=== PATIENT | male | born 1960 | race Caucasian/White ===

== ENCOUNTER 2019-02-10 13:33 | Emergency (ER) | payer OTHER ==
--- NOTE | 2019-02-10 14:12 | ER ---
Nurse's Notes [facility] Name: Missael Beaulieu Age: 58 yrs Sex: Male : 1960 Arrival Date: 02/10/2019 Time: 13:37 Bed 20 Private MD: Diagnosis: Balanoposthitis;Balanitis;Type 2 diabetes mellitus Presentation: 02/10 13:50 Presenting complaint: Patient states: "I am from out of town and I went to go see a aa5 doctor here because my blood sugar was high and they gave me glipizide on January 25 but on Tuesday I started with this rash on my scrotum". 13:50 Acuity: VANITA 5 aa5 13:50 Transition of care: patient was not received from another setting of care. Onset of aa5 symptoms was January 2019. Risk Assessment: Do you want to hurt yourself or someone else? Patient reports no desire to harm self or others. Initial Sepsis Screen: Does the patient meet any 2 criteria? No. Patient's initial sepsis screen is negative. Does the patient have a suspected source of infection? No. Patient's initial sepsis screen is negative. Care prior to arrival: None. 13:50 Method Of Arrival: Ambulatory aa5 Historical: - Allergies: 13:52 No Known Allergies; aa5 - Home Meds: 13:52 atorvastatin, gabapentin, glipizide, metformin, cyclobenzaprine, cartia, steglatro, aa5 lisinopril. [Active]; - PMHx: 13:52 Diabetes - NIDDM; Hypertension; aa5 - PSHx: 13:52 Pacemaker; aa5 - Immunization history:: Adult Immunizations up to date. - Social history:: Smoking status: Patient/guardian denies using tobacco. - Ebola Screening: : No symptoms or risks identified at this time. - Family history:: not pertinent. Screenin:20 Abuse screen: Denies threats or abuse. Nutritional screening: No deficits noted. tw2 Tuberculosis screening: No symptoms or risk factors identified. Fall Risk None identified. Assessment: 14:20 General: Appears in no apparent distress. Behavior is calm, cooperative, appropriate tw2 for age. Pain: Denies pain. Neuro: Level of Consciousness is awake, alert, obeys commands. Cardiovascular: Patient's skin is warm and dry. Respiratory: Airway is patent Respiratory effort is even, unlabored, Respiratory pattern is regular, symmetrical. GI: No signs and/or symptoms were reported involving the gastrointestinal system. Derm: Reports itching and redness to scrotum. Vital Signs: 13:52 BP 126 / 90; Pulse 77; Resp 18 S; Temp 98.6(O); Pulse Ox 97% on R/A; Weight 124.74 kg aa5 (R); Height 6 ft. 1 in. (185.42 cm) (R); 13:52 Body Mass Index 36.28 (124.74 kg, 185.42 cm) aa5 ED Course: 13:37 Patient arrived in ED. rg4 13:49 Carlos Eduardo Clemons MD is Attending Physician. [facility] 13:50 Arm band placed on. aa5 13:50 Bed in low position. Call light in reach. tw2 13:53 Triage completed. aa5 14:20 Estelita Briggs, RN is Primary Nurse. tw2 14:21 No provider procedures requiring assistance completed. Patient did not have IV access tw2 during this emergency room visit. Administered Medications: No medications were administered Outcome: 14:11 Discharge ordered by . [facility] 14:21 Discharged to home ambulatory. tw2 14:21 Condition: stable 14:21 Discharge instructions given to patient, Instructed on discharge instructions, follow up and referral plans. medication usage, Demonstrated understanding of instructions, follow-up care, medications, Prescriptions given X 2. 14:22 Patient left the ED. tw2 Signatures: Carlos Eduardo Clemons MD MD cha Calderon, Audri RN RN aa5 Estelita Briggs RN RN tw2 Joana Salazar rg4
--- NOTE | 2019-02-10 14:12 | EDPHYS ---
Physician Documentation [facility] Name: Missael Beaulieu Age: 58 yrs Sex: Male : 1960 Arrival Date: 02/10/2019 Time: 13:37 Bed 20 Private MD: ED Physician Carlos Eduardo Clemons HPI: 02/10 14:05 This 58 yrs old Male presents to ER via Ambulatory with complaints of Rash. michaela 14:05 The patient's rash thought to be caused by Dermatitis. The rash is located on the body michaela diffusely. The rash can be described as erythematous, raised. Onset: The symptoms/episode began/occurred 3 day(s) ago. Associated signs and symptoms: Pertinent positives: burning sensation, itching, Pertinent negatives: fever. Severity of symptoms: At their worst the symptoms were mild in the emergency department the symptoms are unchanged. Possible causes: yeast. Historical: - Allergies: 13:52 No Known Allergies; aa5 - Home Meds: 13:52 atorvastatin, gabapentin, glipizide, metformin, cyclobenzaprine, cartia, steglatro, aa5 lisinopril. [Active]; - PMHx: 13:52 Diabetes - NIDDM; Hypertension; aa5 - PSHx: 13:52 Pacemaker; aa5 - Immunization history:: Adult Immunizations up to date. - Social history:: Smoking status: Patient/guardian denies using tobacco. - Ebola Screening: : No symptoms or risks identified at this time. - Family history:: not pertinent. ROS: 14:05 Constitutional: Negative for fever, chills, and weight loss, Eyes: Negative for injury, michaela pain, redness, and discharge, ENT: Negative for injury, pain, and discharge, Neck: Negative for injury, pain, and swelling, Cardiovascular: Negative for chest pain, palpitations, and edema, Respiratory: Negative for shortness of breath, cough, wheezing, and pleuritic chest pain, Abdomen/GI: Negative for abdominal pain, nausea, vomiting, diarrhea, and constipation, Back: Negative for injury and pain, MS/Extremity: Negative for injury and deformity, Skin: Negative for injury, rash, and discoloration, Neuro: Negative for headache, weakness, numbness, tingling, and seizure, Psych: Negative for depression, anxiety, suicide ideation, homicidal ideation, and hallucinations, Allergy/Immunology: Negative for hives, rash, and allergies, Endocrine: Negative for neck swelling, polydipsia, polyuria, polyphagia, and marked weight changes, Hematologic/Lymphatic: Negative for swollen nodes, abnormal bleeding, and unusual bruising. Exam: 14:05 Constitutional: This is a well developed, well nourished patient who is awake, alert, michaela and in no acute distress. Head/Face: Normocephalic, atraumatic. Eyes: Pupils equal round and reactive to light, extra-ocular motions intact. Lids and lashes normal. Conjunctiva and sclera are non-icteric and not injected. Cornea within normal limits. Periorbital areas with no swelling, redness, or edema. ENT: Nares patent. No nasal discharge, no septal abnormalities noted. Tympanic membranes are normal and external auditory canals are clear. Oropharynx with no redness, swelling, or masses, exudates, or evidence of obstruction, uvula midline. Mucous membranes moist. Neck: Trachea midline, no thyromegaly or masses palpated, and no cervical lymphadenopathy. Supple, full range of motion without nuchal rigidity, or vertebral point tenderness. No Meningismus. Chest/axilla: Normal chest wall appearance and motion. Nontender with no deformity. No lesions are appreciated. Cardiovascular: Regular rate and rhythm with a normal S1 and S2. No gallops, murmurs, or rubs. Normal PMI, no JVD. No pulse deficits. Respiratory: Lungs have equal breath sounds bilaterally, clear to auscultation and percussion. No rales, rhonchi or wheezes noted. No increased work of breathing, no retractions or nasal flaring. Abdomen/GI: Soft, non-tender, with normal bowel sounds. No distension or tympany. No guarding or rebound. No evidence of tenderness throughout. Back: No spinal tenderness. No costovertebral tenderness. Full range of motion. Skin: Warm, dry with normal turgor. Normal color with no rashes, no lesions, and no evidence of cellulitis. MS/ Extremity: Pulses equal, no cyanosis. Neurovascular intact. Full, normal range of motion. Neuro: Awake and alert, GCS 15, oriented to person, place, time, and situation. Cranial nerves II-XII grossly intact. Motor strength 5/5 in all extremities. Sensory grossly intact. Cerebellar exam normal. Normal gait. Psych: Awake, alert, with orientation to person, place and time. Behavior, mood, and affect are within normal limits. 14:05 : CVA tenderness, is absent, Male external genitalia: erythema, swelling, uncircumcised. Vital Signs: 13:52 BP 126 / 90; Pulse 77; Resp 18 S; Temp 98.6(O); Pulse Ox 97% on R/A; Weight 124.74 kg aa5 (R); Height 6 ft. 1 in. (185.42 cm) (R); 13:52 Body Mass Index 36.28 (124.74 kg, 185.42 cm) aa5 MDM: 13:49 Patient medically screened. [facility] 14:05 Data reviewed: vital signs, nurses notes. [facility] Administered Medications: No medications were administered Disposition: 02/10/19 14:11 Discharged to Home. Impression: Balanoposthitis, Balanitis, Type 2 diabetes mellitus. - Condition is Stable. - Discharge Instructions: Balanitis, Type 2 Diabetes Mellitus, Diagnosis, Adult, Type 2 Diabetes Mellitus, Diagnosis, Adult, [id number], Type 2 Diabetes Mellitus, Self Care, Adult. - Prescriptions for nystatin 100,000 unit/gram Topical ointment - apply 1 application by TOPICAL route 3 times per day; 30 gram. Keflex 250 mg Oral Capsule - take 1 capsule by ORAL route every 6 hours for 10 days; 40 capsule. - Medication Reconciliation Form, Thank You Letter, Antibiotic Education, Prescription Opioid Use form. - Follow up: Private Physician; When: 2 - 3 days; Reason: Recheck today's complaints, Continuance of care, Re-evaluation by your physician. - Problem is new. - Symptoms have improved. Signatures: Carlos Eduardo Clemons MD MD cha Calderon, Audri, RN RN aa5 Estelita Briggs RN RN tw2 Corrections: (The following items were deleted from the chart) 14:12 14:11 02/10/2019 14:11 Discharged to Home. Impression: Balanoposthitis; Balanitis. [facility] Condition is Stable. Forms are Medication Reconciliation Form, Thank You Letter, Antibiotic Education, Prescription Opioid Use. Follow up: Private Physician; When: 2 - 3 days; Reason: Recheck today's complaints, Continuance of care, Re-evaluation by your physician. Problem is new. Symptoms have improved. [facility] 14:22 14:12 02/10/2019 14:11 Discharged to Home. Impression: Balanoposthitis; Balanitis; Type tw2 2 diabetes mellitus. Condition is Stable. Forms are Medication Reconciliation Form, Thank You Letter, Antibiotic Education, Prescription Opioid Use. Follow up: Private Physician; When: 2 - 3 days; Reason: Recheck today's complaints, Continuance of care, Re-evaluation by your physician. Problem is new. Symptoms have improved. [facility]
[2019-02-10 14:43] VITALS: BP 126/90; TEMP 98.6; O2SAT 97
== END 2019-02-10 14:22 | disposition home or self-care (01) ==
LOC: ER 13:33
DX: N48.1 Balanitis (principal); E11.9 Type 2 diabetes mellitus without complications; I10 Essential (primary) hypertension; Z95.0 Presence of cardiac pacemaker
CPT/HCPCS: 99282

== ENCOUNTER 2019-02-15 09:47 | Emergency (ER) | payer OTHER ==
[2019-02-15] MEDS ORDERED: ENOXAPARIN 100 MG/ML SYR SQ ONE (10:09)
[2019-02-15] MEDS ORDERED: METOPROLOL TAR 25 MG TAB ONE (10:09)
[2019-02-15] MEDS ORDERED: ASPIRIN 81 MG CHEWABLE TABLET ONE (10:09)
--- NOTE | 2019-02-15 10:11 | ER ---
Nurse's Notes [facility] Name: Missael Beaulieu Age: 58 yrs Sex: Male : 1960 Arrival Date: 02/15/2019 Time: 09:49 Bed 4 Private MD: Diagnosis: Chest pain, unspecified;Essential (primary) hypertension;Type 2 diabetes mellitus;Hyperlipidemia, unspecified Presentation: 02/15 09:53 Presenting complaint: Patient states: L sided CP that comes and goes that began ss yesterday. Denies cough, SOB. Transition of care: patient was not received from another setting of care. Onset of symptoms was February 14, 2019. Risk Assessment: Do you want to hurt yourself or someone else? Patient reports no desire to harm self or others. Initial Sepsis Screen: Does the patient meet any 2 criteria? No. Patient's initial sepsis screen is negative. Does the patient have a suspected source of infection? No. Patient's initial sepsis screen is negative. Care prior to arrival: None. 09:53 Method Of Arrival: Ambulatory ss 09:53 Acuity: VANITA 3 ss Historical: - Allergies: 09:57 No Known Allergies; ss - PMHx: 09:57 Diabetes - NIDDM; Hypertension; High Cholesterol; ss - PSHx: 09:57 Pacemaker; ss - Immunization history:: Adult Immunizations up to date. - Social history:: Smoking status: Patient/guardian denies using tobacco. - Ebola Screening: : Patient denies exposure to infectious person Patient denies travel to an Ebola-affected area in the 21 days before illness onset. - Family history:: not pertinent. Screenin:57 Abuse screen: Denies threats or abuse. Denies injuries from another. Nutritional sv screening: No deficits noted. Tuberculosis screening: No symptoms or risk factors identified. Fall Risk None identified. Assessment: 09:55 General: Appears in no apparent distress. uncomfortable, well groomed, well developed, sv Behavior is calm, cooperative, appropriate for age. Pain: Complains of pain in left clavicle, anterior aspect of left upper chest and left breast Pain does not radiate. Pain currently is 2 out of 10 on a pain scale. Pain began 1 day ago. Is intermittent. Neuro: Level of Consciousness is awake, alert, obeys commands, Oriented to person, place, time, situation, Moves all extremities. Full function Gait is steady, Speech is normal. Cardiovascular: Patient's skin is warm and dry. Rhythm is sinus rhythm. Respiratory: Airway is patent Respiratory effort is even, unlabored, Respiratory pattern is regular, symmetrical, Denies shortness of breath. Derm: Skin is pink, warm \\T\\ dry. 11:10 Reassessment: Patient appears in no apparent distress at this time. No changes from sv previously documented assessment. Patient and/or family updated on plan of care and expected duration. Pain level reassessed. Patient is alert, oriented x 3, equal unlabored respirations, skin warm/dry/pink. 12:10 Reassessment: Patient appears in no apparent distress at this time. pt requesting to iw speak to provider regarding admission ot states that he does not want to be admitted "if they did not find anything wrong". Dr. Clemons notified. 13:42 Reassessment: Patient appears in no apparent distress at this time. pt requests to sign iw out AMA after speaking with Dr. 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 Vital Signs: 09:57 BP 143 / 90; Pulse 80; Resp 18; Pulse Ox 99% on R/A; Weight 124.74 kg; Height 6 ft. 1 ss in. (185.42 cm); Pain 2/10; 09:57 BP 143 / 90; Pulse 80 MON; Resp 14; Pulse Ox 97% on R/A; sv 11:09 BP 147 / 97; Pulse 73; Resp 22; Pulse Ox 95% ; sv 12:00 BP 105 / 65; Pulse 67; Resp 18; Pulse Ox 95% ; sv 12:30 BP 114 / 78; Pulse 68; Resp 18; Pulse Ox 97% ; sv 09:57 Body Mass Index 36.28 (124.74 kg, 185.42 cm) ss 09:57 Sinus Rhythm sv ED Course: 09:49 Patient arrived in ED. mr 09:51 Carlos Eduardo Clemons MD is Attending Physician. michaela 09:55 Triage completed. ss 09:55 EKG done, by ED staff, reviewed by Carlos Eduardo Clemons MD. sv 09:55 Patient maintains SpO2 saturation greater than 95% on room air. sv 09:56 Arm band placed on. sv 09:57 Patient has correct armband on for positive identification. Placed in gown. Bed in low sv position. Call light in reach. cardiac monitor on. Pulse ox on. NIBP on. Door closed. Head of bed elevated. 10:05 Inserted saline lock: 20 gauge in left antecubital area, using aseptic technique. Blood sv collected. Flushed left antecubital with 5 ml normal saline. 10:07 Sangita Edmondson MD is Hospitalizing Provider. michaela 10:15 Wen Porter, JIMMIE is Primary Nurse. sv 10:18 Awaiting lab results. sv 10:25 XRAY Chest (1 view) In Process Unspecified. EDMS 10:26 Protime (+INR) Sent. sv 13:42 No provider procedures requiring assistance completed. IV discontinued, intact, iw bleeding controlled, No redness/swelling at site. Pressure dressing applied. Administered Medications: 10:15 Drug: Aspirin 162 mg Route: PO; sv 11:09 Follow up: Response: No adverse reaction sv 10:15 Drug: Lovenox 100 mg Route: Sub-Q; Site: right lower abdomen; sv 11:09 Follow up: Response: No adverse reaction sv 10:15 Drug: Lopressor 25 mg Route: PO; sv 11:09 Follow up: Response: No adverse reaction sv Outcome: 10:11 Decision to Hospitalize by Provider. michaela 13:42 AMA AMA form signed iw 13:42 Condition: good 13:42 Discharge instructions given to patient. 13:43 Instructed on the need for admit, Demonstrated understanding of iw 13:43 Patient left the ED. iw Signatures: Dispatcher [employer] EDMS Wen Porter, Carlos Eduardo Camacho RN, MD MD cha Rivera Wilma mr Quyen Flores RN RN Rosa Dubose RN RN ss Corrections: (The following items were deleted from the chart) 13:05 09:57 BP 143 / 90; Pulse 80bpm; Resp 14bpm; Pulse Ox 97% RA; sv sv
--- NOTE | 2019-02-15 10:12 | EDPHYS ---
Physician Documentation [facility] Name: Missael Beaulieu Age: 58 yrs Sex: Male : 1960 Arrival Date: 02/15/2019 Time: 09:49 Bed 4 Private MD: ED Physician Carlos Eduardo Clemons HPI: 02/15 10:03 This 58 yrs old Male presents to ER via Ambulatory with complaints of Chest michaela Pain. 10:03 The patient or guardian reports chest pain that is located primarily in the substernal michaela area, anterior chest wall, left. Onset: 2 day(s) ago. The pain does not radiate. Associated signs and symptoms: The patient has no apparent associated signs or symptoms. The chest pain is described as a heaviness. Modifying factors: The symptoms are alleviated by nothing. the symptoms are aggravated by nothing. Severity of pain: At its worst the pain was mild moderate in the emergency department the pain is unchanged. The patient has not experienced similar symptoms in the past. Historical: - Allergies: 09:57 No Known Allergies; ss - PMHx: 09:57 Diabetes - NIDDM; Hypertension; High Cholesterol; ss - PSHx: 09:57 Pacemaker; ss - Immunization history:: Adult Immunizations up to date. - Social history:: Smoking status: Patient/guardian denies using tobacco. - Ebola Screening: : Patient denies exposure to infectious person Patient denies travel to an Ebola-affected area in the 21 days before illness onset. - Family history:: not pertinent. ROS: 10:03 Constitutional: Negative for fever, chills, and weight loss, Eyes: Negative for injury, michaela pain, redness, and discharge, ENT: Negative for injury, pain, and discharge, Neck: Negative for injury, pain, and swelling, Respiratory: Negative for shortness of breath, cough, wheezing, and pleuritic chest pain, Abdomen/GI: Negative for abdominal pain, nausea, vomiting, diarrhea, and constipation, Back: Negative for injury and pain, : Negative for injury, bleeding, discharge, and swelling, MS/Extremity: Negative for injury and deformity, Skin: Negative for injury, rash, and discoloration, Neuro: Negative for headache, weakness, numbness, tingling, and seizure, Psych: Negative for depression, anxiety, suicide ideation, homicidal ideation, and hallucinations, Allergy/Immunology: Negative for hives, rash, and allergies, Endocrine: Negative for neck swelling, polydipsia, polyuria, polyphagia, and marked weight changes, Hematologic/Lymphatic: Negative for swollen nodes, abnormal bleeding, and unusual bruising. 10:03 Cardiovascular: Positive for chest pain, of the chest. Exam: 10:03 Constitutional: This is a well developed, well nourished patient who is awake, alert, michaela and in no acute distress. Head/Face: Normocephalic, atraumatic. Eyes: Pupils equal round and reactive to light, extra-ocular motions intact. Lids and lashes normal. Conjunctiva and sclera are non-icteric and not injected. Cornea within normal limits. Periorbital areas with no swelling, redness, or edema. ENT: Nares patent. No nasal discharge, no septal abnormalities noted. Tympanic membranes are normal and external auditory canals are clear. Oropharynx with no redness, swelling, or masses, exudates, or evidence of obstruction, uvula midline. Mucous membranes moist. Neck: Trachea midline, no thyromegaly or masses palpated, and no cervical lymphadenopathy. Supple, full range of motion without nuchal rigidity, or vertebral point tenderness. No Meningismus. Chest/axilla: Normal chest wall appearance and motion. Nontender with no deformity. No lesions are appreciated. Cardiovascular: Regular rate and rhythm with a normal S1 and S2. No gallops, murmurs, or rubs. Normal PMI, no JVD. No pulse deficits. Respiratory: Lungs have equal breath sounds bilaterally, clear to auscultation and percussion. No rales, rhonchi or wheezes noted. No increased work of breathing, no retractions or nasal flaring. Abdomen/GI: Soft, non-tender, with normal bowel sounds. No distension or tympany. No guarding or rebound. No evidence of tenderness throughout. Back: No spinal tenderness. No costovertebral tenderness. Full range of motion. Male : Normal genitalia with no discharge or lesions. Skin: Warm, dry with normal turgor. Normal color with no rashes, no lesions, and no evidence of cellulitis. MS/ Extremity: Pulses equal, no cyanosis. Neurovascular intact. Full, normal range of motion. Neuro: Awake and alert, GCS 15, oriented to person, place, time, and situation. Cranial nerves II-XII grossly intact. Motor strength 5/5 in all extremities. Sensory grossly intact. Cerebellar exam normal. Normal gait. Psych: Awake, alert, with orientation to person, place and time. Behavior, mood, and affect are within normal limits. 10:03 Musculoskeletal/extremity: DVT Exam: No signs of deep vein thrombosis. no pain, no swelling, no tenderness, negative Homans' sign noted on exam, no appreciated bluish discoloration, no erythema, no increased warmth. Vital Signs: 09:57 BP 143 / 90; Pulse 80; Resp 18; Pulse Ox 99% on R/A; Weight 124.74 kg; Height 6 ft. 1 ss in. (185.42 cm); Pain 2/10; 09:57 BP 143 / 90; Pulse 80 MON; Resp 14; Pulse Ox 97% on R/A; sv 11:09 BP 147 / 97; Pulse 73; Resp 22; Pulse Ox 95% ; sv 12:00 BP 105 / 65; Pulse 67; Resp 18; Pulse Ox 95% ; sv 12:30 BP 114 / 78; Pulse 68; Resp 18; Pulse Ox 97% ; sv 09:57 Body Mass Index 36.28 (124.74 kg, 185.42 cm) ss 09:57 Sinus Rhythm sv MDM: 09:51 Patient medically screened. [facility] 10:05 Data reviewed: vital signs, nurses notes, lab test result(s), EKG, radiologic studies, michaela plain films. 02/15 09:51 Order name: Basic Metabolic Panel; Complete Time: 11:32 [facility] 02/15 09:51 Order name: CBC with Diff; Complete Time: 11:32 [facility] 02/15 09:51 Order name: LFT's; Complete Time: 11:32 michaela 02/15 09:51 Order name: Magnesium; Complete Time: 11:32 michaela 02/15 09:51 Order name: NT PRO-BNP; Complete Time: 11:32 [facility] 02/15 09:51 Order name: Troponin (emerg Dept Use Only); Complete Time: 11:32 michaela 02/15 09:51 Order name: XRAY Chest (1 view); Complete Time: 11:32 michaela 02/15 10:03 Order name: D-Dimer [facility] 02/15 10:20 Order name: Urine Dipstick--Ancillary (enter results); Complete Time: 11:32 02/15 10:24 Order name: Protime (+INR); Complete Time: 11:32 [facility] 02/15 09:51 Order name: EKG; Complete Time: 09:52 [facility] 02/15 09:51 Order name: Cardiac monitoring; Complete Time: 09:58 [facility] 02/15 09:51 Order name: EKG - Nurse/Tech; Complete Time: 09:58 [facility] 02/15 09:51 Order name: IV Saline Lock; Complete Time: 10:15 [facility] 02/15 09:51 Order name: Labs collected and sent; Complete Time: 10:15 [facility] 02/15 09:51 Order name: O2 Per Protocol; Complete Time: 09:58 [facility] 02/15 09:51 Order name: O2 Sat Monitoring; Complete Time: 09:58 [facility] Administered Medications: 10:15 Drug: Aspirin 162 mg Route: PO; sv 11:09 Follow up: Response: No adverse reaction sv 10:15 Drug: Lovenox 100 mg Route: Sub-Q; Site: right lower abdomen; sv 11:09 Follow up: Response: No adverse reaction sv 10:15 Drug: Lopressor 25 mg Route: PO; sv 11:09 Follow up: Response: No adverse reaction sv Disposition: 02/15/19 13:21 Patient has left against medical advice. Impression: Chest pain, unspecified, Essential (primary) hypertension, Type 2 diabetes mellitus, Hyperlipidemia, unspecified. - Patients states they are going to Home. - Condition is Undetermined. - Discharge Instructions: Nonspecific Chest Pain, Type 2 Diabetes Mellitus, Diagnosis, Adult, Fat and Cholesterol Restricted Diet, Hypertension, Heart Attack, Heart Disease Prevention, Nonspecific Chest Pain, [id number], Hypertension, Mvtn-eg-Odyi, Cholesterol, How to Take Your Blood Pressure, [id number], Aspirin and Your Heart, Type 2 Diabetes Mellitus, Diagnosis, Adult, Fost-iq-Qirq, Managing Your Hypertension. Follow up: Private Physician; When: Upon discharge from the Emergency Department; Reason: Recheck today's complaints, Continuance of care, Re-evaluation by your physician. - Problem is new. - Symptoms are resolved. Signatures: Dispatcher [employer] EDMS Carrie Francis Stephanie, RN RN sv Anderson, Corey, MD MD cha Williams, Irene, RN RN Smirch, Rosa, RN RN ss Corrections: (The following items were deleted from the chart) 10: 09:52 PROTIME (+INR)+COAG.LAB.BRZ ordered. EDMS EDMS 11:43 10:11 Hospitalization Ordered by Sangita Edmondson MD for Observation. Preliminary diagnosis bd is Chest pain, unspecified; Type 2 diabetes mellitus. Bed requested for Telemetry/MedSurg (observation). Status is Observation. Condition is Fair. Problem is new. Symptoms have improved. UTI on Admission? No. michaela 13:20 11:43 02/15/2019 10:11 Hospitalization Ordered by Sangita Edmondson MD for Observation. michaela Preliminary diagnosis is Chest pain, unspecified; Type 2 diabetes mellitus. Bed requested for Telemetry/MedSurg (observation). Status is Observation. Condition is Fair. Problem is new. Symptoms have improved. UTI on Admission? No. bd 13:23 13:21 02/15/2019 13:21 Patients has left against medical advice. Impression: Chest michaela pain, unspecified; Essential (primary) hypertension. Patient states they are going to Home. Condition is Undetermined. Follow up: Private Physician; When: Upon discharge from the Emergency Department; Reason: Recheck today's complaints, Continuance of care, Re-evaluation by your physician. Problem is new. Symptoms are resolved. michaela 13:43 13:23 02/15/2019 13:21 Patients has left against medical advice. Impression: Chest iw pain, unspecified; Essential (primary) hypertension; Type 2 diabetes mellitus; Hyperlipidemia, unspecified. Patient states they are going to Home. Condition is Undetermined. Follow up: Private Physician; When: Upon discharge from the Emergency Department; Reason: Recheck today's complaints, Continuance of care, Re-evaluation by your physician. Problem is new. Symptoms are resolved. michaela
[2019-02-15 10:33] LABS: Absolute Lymphocytes (CBC) 2.8 K/uL (0.7-4.9); Basophils % 1.5 % (0-1.3); Hematocrit 41.6 % (39.6-49.0); Lymphocytes % 32.9 % (15.3-44.8); MPV 11.4 fL (7.6-11.3); RBC Red Blood Cell Count 4.91 M/uL (4.33-5.43)
--- NOTE | 2019-02-15 10:33 | RAD REPORT ---
EXAM DESCRIPTION: RAD - Chest Single View - 02/15/2019 10:25 am CLINICAL HISTORY: CHEST PAIN Chest pain. COMPARISON: No comparisons FINDINGS: Portable technique limits examination quality. The lungs are grossly clear. The heart is upper limit of normal in size. Dual lead pacer device is pr esent. No displaced fractures.Cervical hardware plate. IMPRESSION: No acute intrathoracic process suspected.
[2019-02-15 10:43] LABS: Urine Blood NEGATIVE (NEG); Urine Glucose 2+ (NEG); Urine Protein NEGATIVE (NEG)
[2019-02-15 10:54] LABS: ALT/SGPT 49 U/L (12-78); AST/SGOT 26 U/L (15-37); Albumin 4.1 g/dL (3.4-5.0); Alkaline Phosphatase 67 U/L (45-117); BUN Blood Urea Nitrogen 24 mg/dL (7-18); Bicarbonate 26 mmol/L (21-32); Bilirubin Direct < 0.1 mg/dL (0-0.2); Bilirubin Total 0.3 mg/dL (0.2-1.0); Glucose Level 161 mg/dL (74-106); Magnesium 1.8 mg/dL (1.8-2.4); NT PRO-BNP 27 pg/mL (<125); Potassium 4.1 mmol/L (3.5-5.1); Protein, Total 7.6 g/dL (6.4-8.2); Sodium Level 138 mmol/L (136-145); Troponin (Emerg Dept Use Only) < 0.02 ng/mL (0.0-0.045)
[2019-02-15 11:03] LABS: Protime INR 0.9
--- NOTE | 2019-02-15 12:35 | EKG ---
Test Date: 2019-02-15 Test Time: 09:55:56 Carton Wrapper: CHRISTIAN MEASUREMENT RESULTS: Intervals: Rate: 78 DC: 162 QRSD: 120 QT: 398 QTc: 453 [place]: P: 41 DC: 162 QRS: -23 T: 114 INTERPRETIVE STATEMENTS: Normal sinus rhythm Nonspecific intraventricular conduction delay ST & T wave abnormality, consider lateral ischemia Abnormal ECG No previous ECG available for comparison Electronically Signed On 02-15-19 12:34:28 CDT by Raghavendra Urbina
[2019-02-15 14:23] VITALS: BP 114/78; O2SAT 97
--- NOTE | 2019-02-16 19:02 | HP ---
Date of Admission: 02/15/2019 Primary Care Physician: Out of the state. Chief Complaint: Chest pain. History Of Present Illness: Patient is a 58-year-old male with past medical history of hypertension, diabetes, hyperlipidemia, obesity, comes in with chest pain which was substernal. Patient also has history of pacemaker for sick sinus syndrome. Patient's pain was in the left chest wall, nonradiating, not worsened with activity. Patient did not take any medications to help alleviate the pain. Patient also has history of DVT in the left upper extremity after his pacemaker placement, which was treated with anticoagulants for 6 months. Patient stated the pain was similar, however, in his chest, not in his arm. In the ER his workup was negative. Initial troponin level was negative. EKG did not show any acute changes. D-dimer was normal. UA was also negative. Chest x -ray was also clear. Pacemaker was seen. Patient was referred for admission. When seen in the ER, he was awake, alert, and oriented x3, in some mild distress. Past Medical History: Hypertension, hyperlipidemia, diabetes mellitus type 2 [id number], history of DVT of the left upper extremity, provoked sick sinus syndrome status post pacemaker. Surgical History: Pacemaker, cervical neck surgery with hardware, back surgery x2, and toe surgery. Allergies: NO KNOWN DRUG ALLERGIES. Medications: List reviewed. Social History: Patient denies any tobacco use, alcohol use, or illicit drug use. Lives in [place], currently in [place] working. Family History: Patient has significant history of heart disease in the family with brother passing away of heart attack at age of 62. Has history of CABG, had first heart attack in his 40s. Hypertension and cancer also runs in the family. Review of Systems: Ten-point system reviewed and negative, except as per HPI. Physical Examination: Vital Signs: Blood pressure 143/90, pulse 80, respirations 18, O2 saturation 99 % on room air, BMI 36. General: Awake, alert, oriented x3, obese male, some mild distress. HEENT: Normocephalic, atraumatic. PERRL, EOMI. Moist mucous membranes. Oropharynx is clear. Conjunctivae are anicteric. Neck: Supple. No JVD. Trachea midline. CV: S1 and S2. Regular rate and rhythm. Peripheral pulses present. Respiratory: Moving air well bilaterally. No wheezing or stridor. No use of accessory muscles. Gastrointestinal: Abdomen is soft, nontender, nondistended. Positive bowel sounds. Extremities: No clubbing, cyanosis, or edema. Neuro: Cranial nerves 2 through 12 intact grossly. No focal neurological deficit. Speech is normal. Laboratory Data: UA negative. Sodium 138, potassium 4.1, chloride 106, CO2 26 , BUN 24, creatinine 1.15, glucose 161, calcium 8.8, magnesium 1.8. Troponin less than 0.02. D-dimer 346, INR 0.9. WBC 8.4, H and H 14.2 and 41.6, platelets 290. Neutrophils 55%. EKG showed normal sinus rhythm, nonspecific intraventricular conduction delay, ST-T wave abnormality, possible lateral ischemia, rate of 78. No previous EKG for comparison. Assessment: A 58-year-old male with; 1. Chest pain. Patient has multiple risk factors including hypertension, hyperlipidemia, obesity, diabetes, as well as family history of first male relative with heart attack in his 40s. Troponin is negative. EKG does show some nonspecific changes. Patient will be admitted to the hospital for further evaluation to rule out ACS, obtain cardiac enzymes and EKG, consult Cardiology, obtain echocardiogram, start on chest pain guidelines. 2. Diabetes mellitus type 2, non-insulin requiring. We will start on sliding scale insulin and monitor blood glucose levels. 3. Essential hypertension, stable, resume home medications. 4. Mixed hyperlipidemia. Check lipid panel. Continue statin. 5. Obesity, BMI of 36, counseled. 6. Deep venous thrombosis prophylaxis with Lovenox. 7. History of deep vein thrombosis in the left upper extremity, provoked. Completed treatment with 6 months of anticoagulation. Plan: Admit patient to [facility] as observation. ADDENDUM: Patient left AMA from ER. /LARON Voice ID: [id number]
== END 2019-02-15 13:43 | disposition left against medical advice (07) ==
LOC: ER 09:47 → UNDOADMOB 11:09 → ERHOLD 11:09 → ER 13:43
DX: I10 Essential (primary) hypertension (principal); E78.5 Hyperlipidemia, unspecified; E11.9 Type 2 diabetes mellitus without complications; Z95.0 Presence of cardiac pacemaker
CPT/HCPCS: 93005; 85025; 80048; 36415; 83735; 85610; 85379; 80076; 81003; 84484; 83880; 71045; 96372; 99285; J1650

== ENCOUNTER 2019-10-25 09:03 | Emergency (ER) | payer BC, OTHER ==
[2019-10-25] MEDS ORDERED: HYDROCODONE/APAP 10/325 TAB ONE (09:48)
[2019-10-25] MEDS ORDERED: ONDANSETRON 4 MG (ODT) TAB ONE (09:48)
[2019-10-25 10:26] LABS: Absolute Lymphocytes (CBC) 1.9 K/uL (0.7-4.9); Basophils % 0.3 % (0-1.3); Hematocrit 39.9 % (39.6-49.0); Lymphocytes % 33.8 % (15.3-44.8); MPV 11.4 fL (7.6-11.3); RBC Red Blood Cell Count 4.65 M/uL (4.33-5.43)
[2019-10-25 10:38] LABS: BUN Blood Urea Nitrogen 18 mg/dL (7-18); Bicarbonate 24 mmol/L (21-32); Glucose Level 327 mg/dL (74-106); Sodium Level 136 mmol/L (136-145)
--- OUTSIDE RECORDS SUMMARY | 2019-10-25 10:51 | XMS REPORT | Continuity of Care Document ---
:1960 Author Organization [facility] t Address [address] [place] [address] Care Team Providers Name Role Phone Rosa Rae MD Attending Clinician Francisca Pereira Attending Clinician DR Terrance ESPINOZA Attending Clinician Unavailable DR Terrance ESPINOZA Attending Clinician Unavailable KRISTA Attending Clinician Unavailable Salvatore RUIZ Attending Clinician Unavailable DR Terrance ESPINOZA Admitting Clinician Unavailable JACQUIE Admitting Clinician Unavailable NADEEM Admitting Clinician Unavailable Shaun VELASCO Admitting Clinician Unavailable Salvatore RUIZ Admitting Clinician Unavailable Problems Condition Condition Condition Status Onset Resolution Last Treating Co mments Source Name Details Category Date Date Treatment Clinician Date numbness numbness Problem [facility]25 Lyric kes - eli eli 00:00: Memoria 00 l (LUF/LI V/SA) Transient Transient Problem Active [facility] cerebral cerebral 2-25 [facility] - ischemia ischemia 00:00: Memori a 00 l (LUF/LI V/SA) Hyperglyce Hyperglyce Problem Active [facility] johny johny 2-25 [facility] - 00:00: Memoria 00 l (LUF/LI V/SA) Depression Depression Problem Active [facility] , , [facility] - unspecifie unspecifie Me moria d d l depression depression Ou tpati type type ent Clinics Hyperglyce Hyperglyce Problem Active [facility] johny johny [facility] Outpati ent Clinics History of History of Problem Active [facility] TIA TIA [facility] - (transient (transient Me moria ischemic ischemic l attack) attack) Outpati ent Clinics Rhinitis, Rhinitis, Problem Active [facility] unspecifie unspecifie Lyric kes - d type d type Memoria l [facility] Cardiac Cardiac Problem Active [facility] arrhythmia arrhythmia Lyric kes - , , Memoria unspecifie unspecifie l d cardiac d cardiac Outp ati arrhythmia arrhythmia en t type type Clinics Vitamin D Vitamin D Problem Active [facility] deficiency deficiency Lyric kes - Memoria l [facility]ics Low Low Problem Active [facility] testostero testostero Lyric kes - ne in male ne in male Me moria l [facility] Clinics Other Other Problem Active [facility] osteoarthr osteoarthr Lyric kes - itis of itis of Memoria spine, spine, l lumbar lumbar Outpati region region ent Clinics Type 2 Type [address] [facility] diabetes diabetes [facility] - mellitus mellitus Memori a without without l complicati complicati Ou tpati ons ons ent Clinics Other Other Problem Active [facility] cardiac cardiac [facility] - arrhythmia arrhythmia Me moria l [facility] Diabetes Diabetes Problem Active [facility] Hypertensi Hypertensi Diagnosis Active [facility] on on [facility] GERD GERD Problem Active [facility] (gastroeso (gastroeso Lyric kes - phageal phageal Memoria reflux reflux l disease) disease) Outmtt i ent Clinics Ataxia Ataxia Problem Active [facility] Neuropathy Neuropathy Diagnosis Active [facility] of left of left [facility] - lower lower Memoria extremity extremity l [facility] Dizziness Dizziness Diagnosis Active [facility] Osteoarthr Osteoarthr Problem Active [facility] itis of itis of [facility]ukes - knee knee Memoria l (LUF/LI V/SA) Hypertensi Hypertensi Problem Active [facility] ve ve [facility] - disorder disorder Memori a l (LUF/LI V/SA) Diabetes Diabetes Problem Active [facility] mellitus mellitus [facility] - Memoria l (LUF/LI V/SA) Allergies, Adverse Reactions, Alerts Allergy Allergy Status Severity Reaction(s) Onset Inactive Treating Comm ents Source Name Type Date Date Clinician Levaquin Adverse Active joint [facility] Reaction swelling , Luke s - nerve pain Memori a l [facility] Clinics Codeine Adverse Active nausea [facility] Phosphat Reaction [facility] - e Memoria l [facility] ent Clinics hydralaz Adverse Active flushing, [facility] ine Reaction dyspnea [facility] - Memoria l [facility] ent Clinics Social History Smoking Status Start Date Stop Date Source [facility] (LUF/KANDICE/SA) Medications Ordered Filled Start Stop Current Ordering Indication Dosage Frequency Signature Comments Components Source Medication Medication Date Date Medication? Clinician (SIG) Name Name Andrew Morales Yes Meena [address] [facility] 5-29 Joseluis [facility] - 00:00: Memoria 00 l [facility] ent Clinics Pepcid Pepcid Yes Meena [address] 4-16 Joseluis at bedtime Luke s - 00:00: Memoria 00 l [facility] ent Clinics Vitamin D Vitamin D 2018- No Meena [address] (Ergocalcif (Ergocalcif 4-03 07-23 Joseluis [facility] - deisi) deisi) 00:00: 00:00 Memoria 00 :00 l [facility] ent Clinics Flonase Flonase Yes Meena [address] [facility] 4-02 Joseluis each [facility] - 00:00: nostril Memoria 00 l [facility] ent Clinics clopidogrel clopidogrel Yes 75MG [facility] 75 MG Oral 75 MG Oral 2-27 Joyce es - Tablet Tablet 00:00: Memoria 00 l (LUF/LI V/SA) 120 ACTUAT 120 ACTUAT No 50MCG [facility] Fluticasone Fluticasone 2-27 L ukes - propionate propionate 00:00: M emoria 0.05 0.05 00 l MG/ACTUAT MG/ACTUAT (LUF/ LI Nasal Nasal V/SA) Inhaler Inhaler Amoxicillin Amoxicillin No 500MG Q5H [facility] 250 MG Oral 250 MG Oral 2-27 L ukes - Capsule Capsule 00:00: Memoria 00 l (LUF/LI V/SA) benzonatate benzonatate No 100MG [facility] 100 MG Oral 100 MG Oral 2-27 L ukes - Capsule Capsule 00:00: Memoria 00 l (LUF/LI V/SA) ASPIRIN ASPIRIN No 81MG [facility] TABLET TABLET 2-25 [facility]ukes - CHEWABLE CHEWABLE 00:00: Memor ia 00 l (LUF/LI V/SA) atorvastati atorvastati 0 No 20MG Q2W [facility] n 10 MG n 10 MG 2-25 [facility] - Oral Tablet Oral Tablet 00:00: Memoria 00 l (LUF/LI V/SA) Lisinopril Lisinopril 0 No 20MG [facility] 20 MG Oral 20 MG Oral 2-25 Joyce es - Tablet Tablet 00:00: Memoria 00 l (LUF/LI V/SA) Lisinopril Lisinopril 0 No 10MG [facility] 20 MG Oral 20 MG Oral 2-25 Joyce es - Tablet Tablet 00:00: Memoria 00 l (LUF/LI V/SA) One Touch One Touch 2016-05- No Meena one strip [facility] Ultra Mini Ultra Mini 0-23 07-20 Joseluis [facility] - 00:00: 00:00 Memoria 00 :00 l Outpati ent Clinics Lisinopril Lisinopril 2016-05 Yes Meena [address] [facility] 0-10 Joesluis [facility] - 00:00: Memoria 00 l Outpati ent Clinics Plavix Plavix Yes Meena [address] Joseluis [facility] Outpati ent Clinics Metoprolol Metoprolol Yes Meena [address] [address] Succinate Succinate Joseluis [facility] - ER ER Memoria l Outpati ent Clinics Ibuprofen Ibuprofen Yes Meena [address] Joseluis with food Lukes - or milk as Memoria needed l Outpati ent Clinics Amoxicillin Amoxicillin Yes Meena [address] Joseluis [facility] Outpati ent Clinics Lipitor Lipitor Yes Meena [address] Joseluis [facility] Outpati ent Clinics SMZ-TMP DS SMZ-TMP DS Yes Meena 800-160mg [facility] Joseluis 1 tablet [facility] Out[facility] ent Clinics Milk of Milk of Yes Meena [address] [facility] Magnesia Magnesia Joseluis needed [facility] - [facility] Outpati ent Clinics Esomeprazol Esomeprazol Yes Meena TAKE ONE [facility] e Magnesium e Magnesium Joseluis CAPSULE BY Lukes - MOUTH Memoria EVERY DAY l Outpati ent Clinics Tessalon Tessalon Yes Meena [address] Perles Perles Joseluis every [facility] Xigduo XR Xigduo XR Yes Meena [address] Joseluis [facility] Outpat[facility] ent Clinics Gabapentin Gabapentin Yes Meena [address] Joseluis [facility] Outpat[facility] ent Clinics Aspirin Aspirin Yes Meena [address] Joseluis [facility] Outpati ent Clinics Testosteron Testosteron Yes Meena [address] e Cypionate e Cypionate Joseluis [facility] - [facility] l Outpati ent Clinics Tramadol Tramadol Yes Meena [address] HCl HCl Joseluis as needed [facility] - [facility]oria l Outpati ent Clinics 24 HR 24 HR Yes HOLD FOR 1tab [facility] dapaglifloz dapaglifloz 48 HOURS Lukes - in 5 MG / in 5 MG / Memor ia Metformin Metformin l hydrochlori hydrochlori ( LUF/LI de 1000 MG de 1000 MG V/S A) Extended Extended Release Release Oral Tablet Oral Tablet Aspirin Aspirin Yes 162mg QD [facility] - [facility] (LUF/LI V/SA) atorvastati atorvastati Yes 20mg [facility] n 20 MG n 20 MG Lukes - Oral Tablet Oral Tablet M emoria l (LUF/LI V/SA) Cholecalcif Cholecalcif Yes 32354ar [facility] deisi deisi it [facility] - Memoria l (LUF/LI V/SA) Famotidine Famotidine Yes 20mg [facility] (LUF/LI V/SA) gabapentin gabapentin Yes 300mg TID [facility] - [facility] l (LUF/LI V/SA) Lisinopril Lisinopril Yes 5mg QD [facility] 5 MG Oral 5 MG Oral Lukes - Tablet Tablet Memoria l (LUF/LI V/SA) Metoprolol Metoprolol Yes 50mg QD [facility] (LUF/LI V/SA) tizanidine tizanidine Yes pain, 4mg [facility] severe [facility] - Memoria l (LUF/LI V/SA) tramadol tramadol Yes DISCONTIN 50mg BID [facility] hydrochlori hydrochlori UE L ukes - de 50 MG de 50 MG MEDICATION* Memoria Oral Tablet Oral Tablet * l (LUF/LI V/SA) 24 HR 24 HR No 1tab [facility] dapaglifloz dapaglifloz L ukes - in 5 MG / in 5 MG / Memor ia Metformin Metformin l hydrochlori hydrochlori ( LUF/LI de 500 MG de 500 MG V/SA) Extended Extended Release Release Oral Tablet Oral Tablet 24 HR 24 HR No 50MG TID [facility] metoprolol metoprolol Joyce es - succinate succinate Memor ia 50 MG 50 MG l Extended Extended (LUF/LI Release Release V/SA) Oral Tablet Oral Tablet [Toprol] [Toprol] atorvastati atorvastati No 10MILLI QD [facility] n n GRAM [facility] l (LUF/LI V/SA) Lisinopril Lisinopril No 10MILLI QD [facility] GRAM [facility] l (LUF/LI V/SA) Metoprolol Metoprolol No 50mg QD [facility] Tartrate 50 Tartrate 50 L ukes - MG Oral MG Oral Memoria Tablet Tablet l (LUF/LI V/) Minocycline Minocycline No 100mg BID [facility] l (LUF/LI V/SA) Ranitidine Ranitidine No 150mg [facility] l (LUF/LI V/SA) Immunizations Ordered Immunization Filled Immunization Date Status Commen ts Source Name Name influenza virus influenza virus 2017-04-15 Completed [facility] - vaccine, NOS vaccine, NOS 00:00:00 [facility] (F/KANDICE/SA) Vital Signs Vital Name Observation Time Observation Value Comments Source Body Temperature 2017-09-21 07:44:00 97.2 F [facility] ([facility]/KANDICE/SA) Respiratory Rate 2017-09-21 07:44:00 9 /min [facility] ([facility]/KANDICE/SA) O2% BldC Oximetry 2017-09-21 07:44:00 97 % [facility] ([facility]/KANDICE/SA) BP Systolic 2017-09-21 07:44:00 138 mm[Hg] [facility] (LUF/KANDICE/SA) BP Diastolic 2017-09-21 07:44:00 85 mm[Hg] MARIE Rosa [facility] (LUF/KANDICE/SA) Height 2017-09-20 11:59:00 73 in [facility] (LUF/KANDICE/SA) Weight Measured 2017-09-20 11:59:00 266.07 lbs MARIE yee [facility] (LUF/KANDICE/SA) BMI (Body Mass Index) 2017-09-20 11:59:00 35.2 [facility] (LUF/KANDICE/SA) Body Temperature 2017-08-18 12:00:00 97.9 F [facility] (LUF/KANDICE/SA) Respiratory Rate 2017-08-18 08:34:00 21 /min [facility] (LUF/KANDICE/SA) BP Systolic 2017-08-18 08:34:00 146 mm[Hg] [facility] (LUF/KANDICE/SA) BP Diastolic 2017-08-18 08:34:00 93 mm[Hg] [facility] (LUF/KANDICE/SA) Weight Measured 2017-08-18 07:35:00 262.35 lbs [facility] Francisca yee [facility] (LUF/KANDICE/SA) O2% BldC Oximetry 2017-08-18 04:53:00 95 % MARIE [facility] (LUF/KANDICE/SA) Height 2017-08-16 10:45:00 73 in [facility] (LUF/KANDICE/SA) BMI (Body Mass Index) 2017-08-16 10:45:00 34.7 [facility] (LUF/KANDICE/SA) Body Temperature 2017-07-13 17:16:00 98.4 F [facility] (LUF/KANDICE/SA) Respiratory Rate 2017-07-13 17:16:00 18 /min [facility] (LUF/KANDICE/SA) O2% BldC Oximetry 2017-07-13 17:16:00 98 % [facility] (LUF/KANDICE/SA) BP Systolic 2017-07-13 17:16:00 150 mm[Hg] [facility] (LUF/KANDICE/SA) BP Diastolic 2017-07-13 17:16:00 76 mm[Hg] [facility] (LUF/KANDICE/SA) Body Temperature 2017-07-13 11:00:00 96.8 F [facility] (LUF/KANDICE/SA) Respiratory Rate 2017-07-13 11:00:00 20 /min [facility] (LUF/KANDICE/SA) O2% BldC Oximetry 2017-07-13 11:00:00 94 % [facility] (LUF/KANDICE/SA) BP Systolic 2017-07-13 11:00:00 141 mm[Hg] [facility] (LUF/KANDICE/SA) BP Diastolic 2017-07-13 11:00:00 62 mm[Hg] [facility] (LUF/KANDICE/SA) Weight Measured 2017-07-13 03:30:00 276.23 lbs [facility] Francisca yee [facility] (LUF/KANDICE/SA) Height 2017-07-10 19:26:00 73 in [facility] (LUF/KANDICE/SA) BMI (Body Mass Index) 2017-07-10 19:26:00 36.6 [facility] (LUF/KANDICE/SA) Respiratory Rate 2017-07-10 15:40:00 18 /min [facility] (LUF/KANDICE/SA) O2% BldC Oximetry 2017-07-10 15:10:00 95 % [facility] (LUF/KANDICE/SA) BP Systolic 2017-07-10 15:10:00 159 mm[Hg] [facility] (LUF/KANDICE/SA) BP Diastolic 2017-07-10 15:10:00 99 mm[Hg] [facility] (LUF/KANDICE/SA) Body Temperature 2017-07-10 14:58:00 97.7 F [facility] (LUF/KANDICE/SA) Height 2017-07-10 14:58:00 73 in [facility] (LUF/KANDICE/SA) Weight Measured 2017-07-10 14:58:00 255.73 lbs MARIE yee [facility] (LUF/KANDICE/SA) BMI (Body Mass Index) 2017-07-10 14:58:00 33.8 [facility] ([facility]/) Procedures Procedure Date / Time Performed Performing Clinician [facility] e Cardiac pacemaker [facility] ([facility]/KANDICE/SA) Excision of lymph node [facility] ([facility]/) Encounters Start End Encounter Admission Attending Care Care Encounter Source Date/Time Date/Time Type Type Clinicians Facility Department ID 2019-10-18 2019-10-18 [id number] [facility]:00 00[facility]00:00 [facility] [id number] Surgical [id number] Specialti [id number] es 198 Agar 2019-09-26 2019-09-26 [id number] 00:00:00 00:00:00 [facility] [id number] Surgical [id number] Specialti [id number] es 198 Agar 2019-09-25 2019-09-25 [facility] [id number] 16:19:00 23:59:00 Encounter [facility] [id number] Surgical [id number] Specialti [id number] es 809 Agar 2019-09-25 2019-09-25 Office [facility] [id number] 15:24:28 16:49:49 Visit [facility] [id number] Surgical [id number] Specialti [id number] es 198 Agar 2017-10-18 2017-10-18 [facility] [id number] 11:15:00 11:15:00 [facility] Primary [facility] Care Care l Outpati ent Clinics 2017-10-11 2017-10-11 [facility] [id number] 11:16:00 11:16:00 [facility] Care Care l Outpati ent Clinics 2017-10-06 2017-10-06 [facility] [id number] 11:15:00 11:15:00 Clinics Clinics [facility] Care Care l Outpati ent Clinics 2017-10-06 2017-10-06 Outpatient [facility] [id number] 09:30:00 09:30:00 Clinics Clinics [facility] Care Care l Outpati ent Clinics 2017-09-27 2017-09-27 OTHER 3 JOSELUIS, [facility] [id number] 16:05:00 23:59:00 CERVICAL MEENA A [place] Lyric kes - DISC DEG [facility] C4-C5 [address] ([address], V/[place]) [place] [address] 2017-09-26 2017-09-26 Outpatient [facility] [id number] 13:00:00 13:00:[address] [facility] - Primary Primary Memoria Care Care l Outpati ent Clinics 2017-09-21 2017-09-21 ESSENTIAL O JACQUIE, [facility] [id number] 06:00:00 14:58:00 PRIMARY CLARIBEL [place] [facility] - HYPERTENSI [facility] ia ON [address] ([address], V/SA) SHANNON SHANKAR [address] 2017-09-09 2017-09-09 Outpatient [facility] [id number] 08:00:00 08:00:[address] [facility] - Primary Primary Memoria Care Care l Outpati ent Clinics 2017-09-08 2017-09-08 CHEST PAIN VELAGAPUDI, [facility] [id number] [facility] 13:02:00 23:59:00 UNSPECIFIE MIGUELANGEL [place] Joyce es - D [facility] [address] ([address], V/SA) [place] [address] 2017-09-06 2017-09-06 Outpatient [facility] [id number] 16:42:00 16:42:00 Clinics [facility] - Primary Primary Memoria Care Care l Outpati ent Clinics 2017-09-06 2017-09-06 Outpatient [facility] [id number] 13:00:00 13:00:00 Clinics [facility] - Primary Primary Memoria Care Care l Outpati ent Clinics 2017-09-05 2017-09-05 Outpatient [facility] [id number] 08:27:00 08:27:00 Clinics [facility] Primary [facility] Care Care Outpati ent Clinics 2017-08-29 2017-08-29 Outpatient [facility] [id number] 13:15:00 13:15:00 [facility] Care Care Outpati ent Clinics 2017-08-17 2017-08-18 SICK SINUS 3 ALAGAMichaelUDI, [facility] [id number] [facility] 16:47:00 14:45:00 SYNDROME [facility] [place] Memoria [address] ([address], V/SA) [facility] [place] [address] 2017-08-16 2017-08-16 [facility] [id number] 11:42:00 11:42:00 [facility] Care Care l Outpati ent Clinics 2017-08-15 2017-08-15 [facility] [id number] 15:00:00 15:00:00 [facility] 2017-07-10 2017-07-13 TRANS I JOSELUIS, [facility] [id number] 18:32:00 17:00:00 CERBRAL MEENA A [facility] es - ISCHEMIC [place], [facility] ATTACK UNS [address] ([address], V/SA) [place] [address] 2017-07-10 2017-07-10 TRANS E KRISTA, [facility] [id number] [facility] 14:54:00 17:27:00 CERBRAL MARY LIVING[place] GUPTA L ukes - ISCHEMIC N, [address] (LUF/[place] V/[place] [address] Results Test Description Test Time Test Comments Results Result Sour e Comments XR CERV SPINE 3 2017-09-27 Procedure: XR CERV VIEWS OR LESS 17:27:35 SPINE 3 VIEWS OR LESSOrder Date: 09/27/2017 4:13 PMOrdering Provider: DR MEENA JOSEEClinical Indication: CervicalgiaComparison: MRI Cervical Spine dated July 11, 2017Findings:Intact ACDF at C5-7.Mild anterolisthesis of C3 on C4 which is stable in appearance.There is no acute fracture or significant subluxation.Degenerativ e disc disease at C4-5.There are no lytic or sclerotic lesions.The prevertebral tissues are normal.Impression:1. Intact ACDF at C5-C7.2. Stable mild anterolisthesis of C3 on C4.3. Degenerative disc disease at C4-5.4. Exam otherwise negative.This final report was electronically signed by Dr Rodrick Cardenas MD 09/27/20175:21 PMDictated By: RODRICK CARDENASDate: 09/27/2017 17:27 XR CHEST 2 PA 2017-09-20 Procedure: XR CHEST 2 LATERAL 13:23:14 PA LATERALOrder Date: 09/20/2017 11:58 AMOrdering Provider: CLARIBEL Quezadainical Indication: preopComparison: NoneFindings:The lungs are clear and well-aerated. No pleural effusion or pneumothorax.Cardiac silhouette is normal in size.There is a left-sided dual-lead pacemaker.Impression:No acute pulmonary process.This final report was electronically signed by Dr Esha Evans MD 09/20/20171:16 PMDictated By: AMARILIS EVANSKDate: 09/20/2017 13:23 BMP 2017-09-20 13:23:00 Test Item Value Reference Range Interpretation Comme nts Glucose (test code = GLU) 98 mg/dl 75-110 BUN (test code = BUN) 18.0 mg/dl 6.0-17.0 H Creatinine (test code = 1.0 mg/dl 0.4-1.2 CREA) Sodium (test code = NA) 143 mmol/l 137-145 Potassium (test code = K) 4.2 mmol/l 3.5-5.0 Chloride (test code = CL) 106 mmol/l 98-107 CO2 (test code = CO2) 26 mmol/l 22-30 Calcium (test code = 9.0 mg/dl 8.4-10.2 CALC) EGFR if >60 mL/min/1.73m\\S\\2 (test code = EGFRAA) EGFR if Non- >60 mL/min/1.73m\\S\\2 Estimated Glomerular Serbian (test code = Filtra tion Rate (eGFR) EGFRNA) Reference Inter vals Decision Points for 18 y ears and older and average bod y mass: >= 60 Does not exclude kid aldo disease. 30 - 59 Suggests moderate chroni c kidney disease and indica phoebe the need for further inv estigation including asses sment of proteinuria and cardiovascular factors. < 30 Us ually indicates a nee d for referral for assessment and management of chronic kidney failure. CBC (HEMOGRAM ONLY)2017-09-20 12:19:00 Test Item Value Reference Range Interpretation Comments WBC (test code = 7.67 10\\S\\3/ul 4.80-10.80 WBC) RBC (test code = 5.11 10\\S\\6/ul 4.70-6.10 RBC) Hemoglobin (test 14.8 gm/dl 14.0-18.0 code = HGB) Hematocrit (test 44.8 % 42.0-50.0 code = HCT) MCV (test code = 87.7 fL 80.0-94.0 MCV) MCH (test code = 29.0 pg 27.0-31.0 MCH) MCHC (test code = 33.0 gm/dl 33.0-37.0 MCHC) RDW (test code = 12.5 % 11.5-14.5 RDWVC) Platelet (test code 227 10\\S\\3/ul 130-400 = PLT) MPV (test code = 12.7 fL 7.4-10.4 A "NOT MEASUR ED" MPV) RESULTS ARE DIS PLAYED WHEN THE INSTRU MENT HAS A SUPPRESSE D OR UNREPORTABLE RE SULT. THIS WILL MOST OFTEN HAPPEN WITH THE MPV WHEN THERE IS A N ABNORMAL PLATEL ET DISTRIBUTION DU E TO A CRITICAL LOW VA LUE OR PLATELET CLUMPI NG. THE RDW MAY BE SUPPRESSED IF T HERE ARE MULTIPLE PE AKS PRESENT ON THE RBC HISTOGRAM. IN THIS CASE, A MANUAL REVIEW OF THE SLIDE WI LL BE PERFORMED, AND RBC MORPHOLOGY WILL BE NOTED ON THE RE PORT. CT HEAD W/O [id number] 18:19:50Procedure: CT HEAD W/O CONTRASTOrder Date: 09/06/2017 5:33 PMOrdering Provider: DR MEENA JIMENEZHPANDEClinical Indication: Ataxia, unspecifiedComparison: MRI brain July 11, 2017Technique: CT images of the head were obtained without contrast administration.This exam was performed according to the our departmental dose- optimizationprogram which includes automated exposure control, adjustment ofthe mA and/orkV according to patient size and/or use of iterative reconstruction techniques.Findings:There is no acute cortical infarction, hemorrhage, midline shift, mass effect,or hydrocephalus.The calvaria and skull base are unremarkable. Paranasal sinuses and mastoid aircells are well aerated. Slightly asymmetrically diminished size of the rightmaxillary sinus. Findings may predispose to some and sinus syndrome.Impression:No acute cortical infarction or hemorrhage.This final report was electronically signed by Dr Esha Evans MD 09/06/20176:13 PMDictated By: AMARILIS EVANSKDate: 09/06/2017 18:19XR CHEST 2 PA [id number] 09:39:22Procedure: XR CHEST 2 PA LATERALOrder date: 08/18/2017 5:00 AMOrdering Provider: MIGUELANGEL Riojasinical Indication: POSTBRON: Chest-Post Procedure, AICD placement.Comparison: 08/17/2017Findings:Status post placement of 2-lead left-sided cardiac pacer without complication.Cardiomediastinal silhouetteis within normal limits.The lungs are clear.No pleural effusion or pneumothorax. Osseous structures are nonacute.No evidence of active tuberculosis.Impression:1. Successful placement of left-sided transvenous subclavian 2-lead cardiacpacer without complication. No postoperative pneumothorax.2. Otherwise, nonacute two-view chest.This final report was electronically signed by Dr Fredy Salas MD 08/18/20179:33 AMDictated By: FREDY SALASDate: 08/18/2017 09:[id number] 07:38:00 Test Item Value Reference Range Interpretation Comments Glucose (test code 132 mg/dl 75-110 H = GLU) BUN (test code = 16.0 mg/dl 6.0-17.0 BUN) Creatinine (test 0.9 mg/dl 0.4-1.2 code = CREA) Sodium (test code = 141 mmol/l 137-145 NA) Potassium (test 4.1 mmol/l 3.5-5.0 code = K) Chloride (test code 101 mmol/l 98-107 = CL) CO2 (test code = 29 mmol/l 22-30 CO2) Calcium (test code 9.0 mg/dl 8.4-10.2 = CALC) EGFR if >60 Serbian (test code mL/min/1.73m\\ = EGFRAA) S\\2 EGFR if Non- >60 Estimate d Glomerular Serbian (test code mL/min/1.73m\\ Filtrat ion Rate (eGFR) = EGFRNA) S\\2 Reference Inter vals Decision Points for 18 years and older and average body ma ss: >= 60 Does not exc lude kidney disease. 30 - 59 Suggests modera te chronic kidney disease and indicat es the need for furthe r investigation including asses sment of proteinuria and cardiovascular factors. < 30 Usually in dicates a need for refe rral for assessment and management of c hronic kidney failure. XR CHEST 2 PA [id number] 14:34:37Procedure: XR CHEST 2 PA LATERALOrder Date: 08/16/2017 10:32 AMOrdering Provider: MIGUELANGEL iRojasinical Indication: PRE-OPComparison: July 10, 2017Findings:Cardiac size is normal.Pulmonary vasculature is normal.Mediastinal contour is normal.Aortic contour is normal.There is no consolidationor effusion.There is no mass or pneumothorax.There is no evidence of active tuberculosis.Anterior cervical fusion.Impression: Negative PA and lateral views of the chest.This final report was electronically signed by Dr Rodrick Cardenas MD 08/16/20172:28 PMDictated By: RODRICK CARDENAS.Date: 08/16/2017 14:34PT AND [id number] 11:22:00 Test Item Value Reference Range Interpretation Comments Protime (test code 10.4 seconds 9.0-11.9 = PT) INR (test code = 1.0 0.9-1.1 INR results are INR) intended ONLY t o monitor Oral Anticoagulant t herapy in stablized pa tients. The INR Therape utic Range is 2.0 - 3.0 Patients with a mechanical hear t, the INR Range is 2. 5 - 3.5 [id number] 11:22:00 Test Item Value Reference Range Interpretation Comments aPTT (test code = PTT) 24.6 seconds 23.0-33.0 [id number] 11:15:00 Test Item Value Reference Range Interpretation Comments Glucose (test code 136 mg/dl 75-110 H = GLU) BUN (test code = 20.0 mg/dl 6.0-17.0 H BUN) Creatinine (test 1.0 mg/dl 0.4-1.2 code = CREA) Sodium (test code = 146 mmol/l 137-145 H NA) Potassium (test 4.0 mmol/l 3.5-5.0 code = K) Chloride (test code 107 mmol/l 98-107 = CL) CO2 (test code = 25 mmol/l 22-30 CO2) Calcium (test code 9.7 mg/dl 8.4-10.2 = CALC) EGFR if >60 Serbian (test code mL/min/1.73m\\ = EGFRAA) S\\2 EGFR if Non- >60 Estimate d Glomerular Serbian (test code mL/min/1.73m\\ Filtrat ion Rate (eGFR) = EGFRNA) S\\2 Reference Inter vals Decision Points for 18 years and older and average body ma ss: >= 60 Does not exc lude kidney disease. 30 - 59 Suggests modera te chronic kidney disease and indicat es the need for furthe r investigation including asses sment of proteinuria and cardiovascular factors. < 30 Usually in dicates a need for refe rral for assessment and management of c hronic kidney failure. CBC (HEMOGRAM ONLY)2017-08-16 11:06:00 Test Item Value Reference Range Interpretation Comments WBC (test code = 7.77 10\\S\\3/ul 4.80-10.80 WBC) RBC (test code = 5.46 10\\S\\6/ul 4.70-6.10 RBC) Hemoglobin (test 15.8 gm/dl 14.0-18.0 code = HGB) Hematocrit (test 46.7 % 42.0-50.0 code = HCT) MCV (test code = 85.5 fL 80.0-94.0 MCV) MCH (test code = 28.9 pg 27.0-31.0 MCH) MCHC (test code = 33.8 gm/dl 33.0-37.0 MCHC) RDW (test code = 12.1 % 11.5-14.5 RDWVC) Platelet (test code 271 10\\S\\3/ul 130-400 = PLT) MPV (test code = 12.7 fL 7.4-10.4 A "NOT MEASUR ED" MPV) RESULTS ARE DIS PLAYED WHEN THE INSTRU MENT HAS A SUPPRESSE D OR UNREPORTABLE RE SULT. THIS WILL MOST OFTEN HAPPEN WITH THE MPV WHEN THERE IS A N ABNORMAL PLATEL ET DISTRIBUTION DU E TO A CRITICAL LOW VA LUE OR PLATELET CLUMPI NG. THE RDW MAY BE SUPPRESSED IF T HERE ARE MULTIPLE PE AKS PRESENT ON THE RBC HISTOGRAM. IN THIS CASE, A MANUAL REVIEW OF THE SLIDE WI LL BE PERFORMED, AND RBC MORPHOLOGY WILL BE NOTED ON THE RE PORT. CULTURE, [id number] 07:11:00Specimen: BloodCollected: 07/11/2017 10:00 Status: Final Last Updated: 07/17/2017 07:09 Culture Result (Final) (Final) No Growth After 5 DaysCULTURE, [id number] 07:11:00To start 15mins after 1st cultureSpecimen: BloodCollected: 07/11/2017 10:00 Status: Final Last Updated: 07/17/2017 07:10 (1) To start 15mins after 1st culture Culture Result (Final) (Final) No Growth After 5 [id number] 10:38:00 Test Item Value Reference Range Interpretation Comments TRYPTASE (test code = 506140) 3.4 ug/L 2.2-13.2 N CHROMOGRANIN [id number] 07:47:00 Test Item Value Reference Range Interpretation Comments CHROMOGRANIN A (test 1 nmol/L 0-5 N Chromog ranin A performed code = 863481) by [employer] methodology. Re sults for this test are d esignated to be for [facility] purposes only b y the assay's manufac turer. The performance characteristics of this product have no t been established. Re sults for this test shoul d not be used as absolut e evidence of pre sence or absence of lacey gnant disease without confirmation of the diagnosis by an other medically estab lished diagnostic prod uct or procedure. Valu es obtained with d ifferent assay methods o r kits cannot be used interchangeably . PERFORMED AT: [facility] [address] [id number] [employer] SUPERVISOR: Vignesh Tenorio MD PHONE: [phone] 06:02:00 Test Item Value Reference Range Interpretation Comments Glucose (test code 133 mg/dl 75-110 H = GLU) BUN (test code = 15.0 mg/dl 6.0-17.0 BUN) Creatinine (test 0.9 mg/dl 0.4-1.2 code = CREA) Sodium (test code = 147 mmol/l 137-145 H NA) Potassium (test 3.7 mmol/l 3.5-5.0 code = K) Chloride (test code 106 mmol/l 98-107 = CL) CO2 (test code = 29 mmol/l 22-30 CO2) Calcium (test code 8.4 mg/dl 8.4-10.2 = CALC) T Protein (test 6.2 gm/dl 5.1-8.7 code = TP) Albumin (test code 3.5 gm/dl 3.5-4.6 = ALB) A/G Ratio (test 1.3 % 1.1-2.2 code = AGRAT) AST (SGOT) (test 24 U/L 11-36 code = AST) ALT (SGPT) (test 41 U/L 11-40 H code = ALT) Alkaline Phos (test 46 U/L 47-114 L code = ALKP) Total Bilirubin 0.3 mg/dl 0.2-1.2 (test code = TBIL) Globulin (test code 2.7 gm/dl 2.3-3.5 = GLOBU) Calcium, Corrected 8.8 mg/dl 8.4-10.2 Various f ormulas exist (test code = for corrected s ligia CALCCORR) calcium results , each yielding differ ent values. This corrected resul t was based on the fo rmula: Corrected Calci um = SerumCalcium + [0.8 * ( 4 - SerumAlbu min)] EGFR if >60 Serbian (test code mL/min/1.73m\\ = EGFRAA) S\\2 EGFR if Non- >60 Estimate d Glomerular Serbian (test code mL/min/1.73m\\ Filtrat ion Rate (eGFR) = EGFRNA) S\\2 Reference Inter vals Decision Points for 18 years and older and average body ma ss: >= 60 Does not exc lude kidney disease. 30 - 59 Suggests modera te chronic kidney disease and indicat es the need for furthe r investigation including asses sment of proteinuria and cardiovascular factors. < 30 Usually in dicates a need for refe rral for assessment and management of c hronic kidney failure. CBC WITH AUTO [id number] 06:00:00 Test Item Value Reference Range Interpretation Comments WBC (test code = 10.68 4.80-10.80 WBC) 10\\S\\3/ul RBC (test code = 4.46 10\\S\\6/ul 4.70-6.10 L RBC) Hemoglobin (test 13.3 gm/dl 14.0-18.0 L code = HGB) Hematocrit (test 40.8 % 42.0-50.0 L code = HCT) MCV (test code = 91.5 fL 80.0-94.0 MCV) MCH (test code = 29.8 pg 27.0-31.0 MCH) MCHC (test code = 32.6 gm/dl 33.0-37.0 L MCHC) RDW (test code = 14.0 % 11.5-14.5 RDWVC) Platelet (test code 263 10\\S\\3/ul 130-400 = PLT) MPV (test code = 12.4 fL 7.4-10.4 A "NOT MEASUR ED" MPV) RESULTS ARE DIS PLAYED WHEN THE INSTRU MENT HAS A SUPPRESSE D OR UNREPORTABLE RE SULT. THIS WILL MOST OFTEN HAPPEN WITH THE MPV WHEN THERE IS A N ABNORMAL PLATEL ET DISTRIBUTION DU E TO A CRITICAL LOW VA LUE OR PLATELET CLUMPI NG. THE RDW MAY BE SUPPRESSED IF T HERE ARE MULTIPLE PE AKS PRESENT ON THE RBC HISTOGRAM. IN THIS CASE, A MANUAL REVIEW OF THE SLIDE WI LL BE PERFORMED, AND RBC MORPHOLOGY WILL BE NOTED ON THE RE PORT. NE% (test code = 49.2 % 42.0-75.0 NE) LY% (test code = 37.6 % 13.0-42.0 LY) MO% (test code = 9.9 % 4.0-14.0 MO) EO% (test code = 0.9 % 1.0-3.0 L EO) BA% (test code = 0.5 % 1.0-3.0 L BA) IG% (test code = 1.9 % 0.0-0.4 H IG%) CBC AUTO [id number] 17:58:00 Test Item Value Reference Range Interpretation Comments FT (test code = RPR) Non-Reactive (qualifier Non-Reactive N value) HOMOCYSTEINE, [id number] 09:46:00 Test Item Value Reference Range Interpretation Comments HOMOCYST(E)INE, PLASMA (test code 8.4 umol/L 0.0-15.0 N = 732290) PERFORMED AT: [facility] [address] [id number] [employer] SUPERVISOR: Michael Henderson MD PHONE: [phone] 05:49:00 Test Item Value Reference Range Interpretation Comments Glucose (test code 135 mg/dl 75-110 H = GLU) BUN (test code = 21.0 mg/dl 6.0-17.0 H BUN) Creatinine (test 0.8 mg/dl 0.4-1.2 code = CREA) Sodium (test code = 148 mmol/l 137-145 H NA) Potassium (test 3.6 mmol/l 3.5-5.0 code = K) Chloride (test code 110 mmol/l 98-107 H = CL) CO2 (test code = 28 mmol/l 22-30 CO2) Calcium (test code 8.6 mg/dl 8.4-10.2 = CALC) EGFR if >60 Serbian (test code mL/min/1.73m\\ = EGFRAA) S\\2 EGFR if Non- >60 Estimate d Glomerular Serbian (test code mL/min/1.73m\\ Filtrat ion Rate (eGFR) = EGFRNA) S\\2 Reference Inter vals Decision Points for 18 years and older and average body ma ss: >= 60 Does not exc lude kidney disease. 30 - 59 Suggests modera te chronic kidney disease and indicat es the need for furthe r investigation including asses sment of proteinuria and cardiovascular factors. < 30 Usually in dicates a need for refe rral for assessment and management of c hronic kidney failure. CBC WITH AUTO [id number] 05:43:00 Test Item Value Reference Range Interpretation Comments WBC (test code = 15.34 4.80-10.80 H WBC) 10\\S\\3/ul RBC (test code = 4.36 10\\S\\6/ul 4.70-6.10 L RBC) Hemoglobin (test 12.9 gm/dl 14.0-18.0 L code = HGB) Hematocrit (test 39.4 % 42.0-50.0 L code = HCT) MCV (test code = 90.4 fL 80.0-94.0 MCV) MCH (test code = 29.6 pg 27.0-31.0 MCH) MCHC (test code = 32.7 gm/dl 33.0-37.0 L MCHC) RDW (test code = 14.1 % 11.5-14.5 RDWVC) Platelet (test code 262 10\\S\\3/ul 130-400 = PLT) MPV (test code = 12.7 fL 7.4-10.4 A "NOT MEASUR ED" MPV) RESULTS ARE DIS PLAYED WHEN THE INSTRU MENT HAS A SUPPRESSE D OR UNREPORTABLE RE SULT. THIS WILL MOST OFTEN HAPPEN WITH THE MPV WHEN THERE IS A N ABNORMAL PLATEL ET DISTRIBUTION DU E TO A CRITICAL LOW VA LUE OR PLATELET CLUMPI NG. THE RDW MAY BE SUPPRESSED IF T HERE ARE MULTIPLE PE AKS PRESENT ON THE RBC HISTOGRAM. IN THIS CASE, A MANUAL REVIEW OF THE SLIDE WI LL BE PERFORMED, AND RBC MORPHOLOGY WILL BE NOTED ON THE RE PORT. NE% (test code = 65.2 % 42.0-75.0 NE) LY% (test code = 23.9 % 13.0-42.0 LY) MO% (test code = 8.8 % 4.0-14.0 MO) EO% (test code = 0.1 % 1.0-3.0 L EO) BA% (test code = 0.3 % 1.0-3.0 L BA) IG% (test code = 1.7 % 0.0-0.4 H IG%) CBC AUTO diffTIC MRI CSPINE W/O [id number] 19:44:01Lt side of face drooping, trembling tingling around mouth, slurred speech x 2 days. Neck pain. Procedure: TIC MRI CSPINE W/O CONTRASTOrder Date: 07/11/2017 7:00 AMOrdering Provider: DR SEE DREWlinical Indication: TIA: Transient Ischemic AttackNECK PAIN, left ARM NUMBNESSComparison: NoneTechnique: Multisequence, multiplanar images of the cervical spine were obtainedwithout administration of intravenous contrast.Findings:Vertebral body heights are preserved. There is straightening of normalcervical lordosis. Anterior plate and screw fixation is seen at C5-C7 levels.Posterior fossa and craniocervical junction : Unremarkable.Cervical Cord: Unremarkable.C2-C3: No significant stenosis.C3-C4: Shallow disc osteophyte complex and left greater than right uncovertebralhypertrophy arepresent. Mild spinal canal stenosis. Severe left and mild rightneural foraminal stenosis.C4-C5: Shallow disc osteophyte complex and bilateral uncovertebral hypertrophy.No significant spinal canal stenosis. Mild bilateral neural foraminal stenosis.C5-C6: Mild posterior endplate ridging and bilateral facet degeneration. Spinalcanal is patent. Mild left neural foraminal stenosis.C6-C7: Mild posterior endplate ridging and bilateral uncovertebral hypertrophy.Spinal canal is patent. Mild right neural foraminal stenosis.C7-T1: Diffuse disc osteophyte complex, ligamentum flavum buckling and bilateraluncover tebral hypertrophy. No significant spinal canal stenosis. Neural foraminaare patent.Impression:Multilevel degenerative changes without high-grade spinal canal stenosis. Mildspinal canal stenosis at C3-C4.Varying degrees of neural foraminal stenosis detailed level by level above.Index C5-C7 ACDF.No abnormal cord signal.This final report was electronically signed by Dr Esha Evans MD 07/11/20177:37 PMDictated By: AMARILIS EVANSKDate: 07/11/2017 19:43TIC MRA ANGIO HEAD W/O [id number] 19:21:54Lt side of face drooping, trembling tingling around mouth, slurred speech x 2 days. Neck pain.Procedure: TIC MRA ANGIO HEAD W/O CONTRASTOrder Date: 07/11/2017 7:00 AMOrdering Provider: DR CARL Chinoinical Indication: cva w/o tpa. Left-sided weaknessComparison: NoneTechnique: 3D time of flight imaging of the intracranial vessels was performedwithout the use of intravenous contrast.Findings:Anterior circulation demonstrates unremarkable appearance of the bilateralmiddle cerebral, anterior cerebral and internal carotid arteries.Posterior circulation demonstrates unremarkable appearance of the bilateraldistal vertebral, basilar, superior cerebellar and posterior cerebral arteries.Impression:No evidence of intracranial vascular abnormality.This final report was electronically signed by Dr Esha Evans MD 07/11/20177:15 PMDictated By: Marie EVANSte: 07/11/2017 19:21TIC MRI HEAD (BRAIN) W/O [id number] 18:57:42Lt side of face drooping, trembling tingling around mouth, slurred speech x 2 days. Neck pain.Procedure: TIC MRI HEAD (BRAIN) W/O CONTOrder Date: 07/11/2017 7:00 AMOrdering Provider: DR CARL Chinoinical Indication: cva w/o tpa. Left-sided facial drooping and trembling.Comparison: Head CTFebruary 2017Technique: Multiplanar, multisequence images of the brain were obtained withoutadministration of intravenous gadolinium based contrast.Findings:No evidence of diffusion restriction to suggest acute infarct.Normal signal characteristics of the brain parenchyma on T2/FLAIR sequences.Ventricles are normal in size morphology without midline shift or mass effect.Basal cisterns are patent.Expected arterial flow-voids are present.There is no extra-axial fluid collection. No acute or chronic intracranialhemorrhage is seen.No evidence of cerebellar tonsillar herniation. Sellar/suprasellar structuresare intact. The cervicomedullary junction is within normal limits.Diminished size of the right maxillary sinus which is partially opacified. Smallair-fluid level is seen in the left maxillary sinus. Mucosal thickening involvesthe ethmoid air cells, left sphenoid sinus and the frontal sinuses.Impression:1. No acute infarction.2. Paranasal sinus disease.This final report was electronically signed by Dr Esha Evans MD 07/11/20176:51 PMDictated By: Marie EVANSte: 07/11/2017 18:57MYOGLOBIN, [id number] 13:14:00 Test Item Value Reference Range Interpretation Comments Myoglobin (test code = THUY) 52.9 ng/ml 0.0-121.0 [id number] 13:14:00 Test Item Value Reference Range Interpretation Comments CKMB (test code = CKMB) 1.17 ng/ml 0.00-2.37 TROPONIN-I [id number] 13:14:00 Test Item Value Reference Range Interpretation Comments Troponin-I (test <0.012 ng/ml 0.000-0.034 N [address] r[address]ile URL code = TROP) is 0.034 ng/mL. The Joint Society of Cardiology/[facility] College of Card iology (ESC/ACC) and [facility] Bioche mason Standards [facility] boratory Practices ([facility] ) recommends that the diagnosis of AM I includes the presence of clinical history suggest sandoval of Acute Coronary Syndrome (ACS) and a max imum concentration o f cardiac troponin exceed ing the 99th percentile of a normal referenc e population [upp er reference limit (URL)] on at least one oc casion during the firs t 24 hours after the clini [place] event. [id number] 13:05:00 Test Item Value Reference Range Interpretation Comments CPK (test code = CPK) 111 U/L 30-135 TROPONIN-I [id number] 08:05:00 Test Item Value Reference Range Interpretation Comments Troponin-I (test <0.012 ng/ml 0.000-0.034 N [address]ile URL code = TROP) is 0.034 ng/mL. The Joint Society of Cardiology/[facility] College of Card iology (ESC/ACC) and [facility] mason Standards of [place] boratory Practices (NACB ) recommends that the diagnosis of AM I includes the presence of clinical history suggest sandoval of Acute Coronary Syndrome (ACS) and a max imum concentration o f cardiac troponin exceed ing the 99th percentile of a normal referenc e population [upp er reference limit (URL)] on at least one oc casion during the firs t 24 hours after the clini [place] event. [id number] 08:05:00 Test Item Value Reference Range Interpretation Comments CKMB (test code = CKMB) 1.27 ng/ml 0.00-2.37 [id number] 07:56:00 Test Item Value Reference Range Interpretation Comments CPK (test code = CPK) 119 U/L 30-135 US CAROTID BILAT [id number] 06:43:55Procedure: US CAROTID BILAT DopplerOrder Date: 07/10/2017 8:07 PMOrdering Provider: DR CARL Chinoinical Indication: Left-sided facial droop and numbness, CVAComparison: NoneTECHNIQUE : Real-time cerebrovascular ultrasonography was obtained from sternalnotch to the angle of the mandible bilaterally utilizing guido scale, color flowand spectral Doppler analysis. Systolic velocity ratios were calculated forinternal carotid artery to common carotid artery bilaterally.FINDINGS:RIGHT CAROTID BIFURCATION: No significant atherosclerotic plaque. Peak systolicand end- diastolic velocities in the right internal carotid artery are 91 and 28cm/s. Internal carotid/common carotid ratio is 0.8. Right vertebral flow isantegrade.LEFT CAROTID BIFURCATION: No significant atherosclerotic plaque. Peak systolicand end-diastolic velocities in the left internal carotid artery are 99 and 43cm/s. Internal carotid/common carotid ratio is 1.1. Left vertebral flow isantegrade.IMPRESSION:1. No significant atherosclerotic plaque in each carotid bulb and ICA origin.2. There is no significant stenosis (0% on the right and 1-15% on the left) ateither ICA origin.3. Bilateral antegrade vertebral artery flow.This final report was electronically signed by Dr Fredy Salas MD 07/11/20176:37 AMDictated By: FREDY SALASDate: 07/11/2017 06:43TROPONIN-I [id number] 06:26:00 Test Item Value Reference Range Interpretation Comments Troponin-I (test <0.012 ng/ml 0.000-0.034 N [address] URL code = TROP) is 0.034 ng/mL. The Joint Society of Cardiology/[place] College of Card iology (ESC/ACC) and t [facility] y of Clinical [employer] mason Standards of [place] boratory Practices (NACB ) recommends that the diagnosis of AM I includes the presence of clinical history suggest sandoval of Acute Coronary Syndrome (ACS) and a max imum concentration o f cardiac troponin exceed ing the 99th percentile of a normal referenc e population [upp er reference limit (URL)] on at least one oc casion during the firs t 24 hours after the clini [place] event. [id number] 06:26:00 Test Item Value Reference Range Interpretation Comments CPK (test code = CPK) 120 U/L 30-135 MYOGLOBIN, [id number] 06:26:00 Test Item Value Reference Range Interpretation Comments Myoglobin (test code = THUY) 44.3 ng/ml 0.0-121.0 [id number] 06:26:00 Test Item Value Reference Range Interpretation Comments CKMB (test code = CKMB) 2.76 ng/ml 0.00-2.37 HH Critical values were called to leigh Paulino by [id number] on 07/11/2017 06:26 AM. Results were read back by leigh Paulino.[id number] 06:20:00 Test Item Value Reference Range Interpretation Comments Cholesterol (test code = CHOL) 124 mg/dl 0-198 LDL, [id number] 06:20:00 Test Item Value Reference Range Interpretation Comments dLDL (test code = 76 mg/dl 0-99 Direct LDL DILDL) Intrepretations : Optimal: <100 mg/dl Suspect: 100 - 129 mg/dl Borderline: 130 - 159 mg/dl High: 160 - 189 mg/dl Very H igh: >190 mg/dl HDL, [id number] 06:20:00 Test Item Value Reference Range Interpretation Comments HDL (test code = HDL) 35 mg/dl 35-86 [id number] 06:20:00 Test Item Value Reference Range Interpretation Comments Triglycerides (test 61 mg/dl 0-149 Trig. In terpretation code = TRIG) Guide: Nor mal: < 150 mg/dl Borderline High : 150 - 199 mg/dl High: 200 - 499 mg/dl Very High: >= 5 00 mg/dl [id number] 06:08:00 Test Item Value Reference Range Interpretation Comments Magnesium (test code = MG) 2.0 mg/dl 1.6-2.3 [id number] 06:08:00 Test Item Value Reference Range Interpretation Comments Glucose (test code 189 mg/dl 75-110 H = GLU) BUN (test code = 19.0 mg/dl 6.0-17.0 H BUN) Creatinine (test 0.9 mg/dl 0.4-1.2 code = CREA) Sodium (test code = 146 mmol/l 137-145 H NA) Potassium (test 4.2 mmol/l 3.5-5.0 code = K) Chloride (test code 106 mmol/l 98-107 = CL) CO2 (test code = 27 mmol/l 22-30 CO2) Calcium (test code 9.7 mg/dl 8.4-10.2 = CALC) T Protein (test 6.8 gm/dl 5.1-8.7 code = TP) Albumin (test code 4.1 gm/dl 3.5-4.6 = ALB) A/G Ratio (test 1.5 % 1.1-2.2 code = AGRAT) AST (SGOT) (test 32 U/L 11-36 code = AST) ALT (SGPT) (test 44 U/L 11-40 H code = ALT) Alkaline Phos (test 55 U/L 47-114 code = ALKP) Total Bilirubin 0.4 mg/dl 0.2-1.2 (test code = TBIL) Globulin (test code 2.7 gm/dl 2.3-3.5 = GLOBU) Calcium, Corrected 9.6 mg/dl 8.4-10.2 Various f ormulas exist (test code = for corrected s ligia CALCCORR) calcium results , each yielding differ ent values. This corrected resul t was based on the fo rmula: Corrected Calci um = SerumCalcium + [0.8 * ( 4 - SerumAlbu min)] EGFR if >60 Serbian (test code mL/min/1.73m\\ = EGFRAA) S\\2 EGFR if Non- >60 Estimate d Glomerular Serbian (test code mL/min/1.73m\\ Filtrat ion Rate (eGFR) = EGFRNA) S\\2 Reference Inter vals Decision Points for 18 years and older and average body ma ss: >= 60 Does not exc lude kidney disease. 30 - 59 Suggests modera te chronic kidney disease and indicat es the need for furthe r investigation including asses sment of proteinuria and cardiovascular factors. < 30 Usually in dicates a need for refe rral for assessment and management of c hronic kidney failure. CBC WITH AUTO [id number] 05:54:00 Test Item Value Reference Range Interpretation Comments WBC (test code = 17.31 4.80-10.80 H WBC) 10\\S\\3/ul RBC (test code = 4.57 10\\S\\6/ul 4.70-6.10 L RBC) Hemoglobin (test 13.5 gm/dl 14.0-18.0 L code = HGB) Hematocrit (test 41.1 % 42.0-50.0 L code = HCT) MCV (test code = 89.9 fL 80.0-94.0 MCV) MCH (test code = 29.5 pg 27.0-31.0 MCH) MCHC (test code = 32.8 gm/dl 33.0-37.0 L MCHC) RDW (test code = 13.5 % 11.5-14.5 RDWVC) Platelet (test code 285 10\\S\\3/ul 130-400 = PLT) MPV (test code = 12.7 fL 7.4-10.4 A "NOT MEASUR ED" MPV) RESULTS ARE DIS PLAYED WHEN THE INSTRU MENT HAS A SUPPRESSE D OR UNREPORTABLE RE SULT. THIS WILL MOST OFTEN HAPPEN WITH THE MPV WHEN THERE IS A N ABNORMAL PLATEL ET DISTRIBUTION DU E TO A CRITICAL LOW VA LUE OR PLATELET CLUMPI NG. THE RDW MAY BE SUPPRESSED IF T HERE ARE MULTIPLE PE AKS PRESENT ON THE RBC HISTOGRAM. IN THIS CASE, A MANUAL REVIEW OF THE SLIDE WI LL BE PERFORMED, AND RBC MORPHOLOGY WILL BE NOTED ON THE RE PORT. NE% (test code = 82.4 % 42.0-75.0 H NE) LY% (test code = 10.3 % 13.0-42.0 L LY) MO% (test code = 6.5 % 4.0-14.0 MO) EO% (test code = 0.0 % 1.0-3.0 L EO) BA% (test code = 0.1 % 1.0-3.0 L BA) IG% (test code = 0.7 % 0.0-0.4 H IG%) CBC AUTO diffTSH (Ultra Sensitive)2017-07-11 01:00:00 Test Item Value Reference Range Interpretation Comments TSH (test code = TSH) 0.67 mIU/L 0.47-4.68 [id number] 23:58:00 Test Item Value Reference Range Interpretation Comments CPK (test code = CPK) 162 U/L 30-135 H [id number] 23:58:00 Test Item Value Reference Range Interpretation Comments CKMB (test code = CKMB) 1.42 ng/ml 0.00-2.37 TROPONIN-I [id number] 23:58:00 Test Item Value Reference Range Interpretation Comments Troponin-I (test <0.012 ng/ml 0.000-0.034 N [address] URL code = TROP) is 0.034 ng/mL. The Joint Society of Cardiology/[facility] College of Card iology (ESC/ACC) and [facility] of Clinical [place] mason Standards of La boratory Practices (NACB ) recommends that the diagnosis of AM I includes the presence of clinical history suggest sandoval of Acute Coronary Syndrome (ACS) and a max imum concentration o f cardiac troponin exceed ing the 99th percentile of a normal referenc e population [upp er reference limit (URL)] on at least one oc casion during the firs t 24 hours after the clini [place] event. MYOGLOBIN, [id number] 23:58:00 Test Item Value Reference Range Interpretation Comments Myoglobin (test code = THUY) 37.8 ng/ml 0.0-121.0 CORONARY [id number] 22:54:00 Test Item Value Reference Range Interpretation Comments Triglycerides (test 44 mg/dl 0-149 Trig. In terpretation code = TRIG) Guide: Nor mal: < 150 mg/dl Borderline High : 150 - 199 mg/dl High: 200 - 499 mg/dl Very High: >= 5 00 mg/dl Cholesterol (test code 131 mg/dl 0-198 = CHOL) HDL (test code = HDL) 38 mg/dl 35-86 dLDL (test code = 80 mg/dl 0-99 Direct LDL DILDL) Intrepretations : Optimal: <100 mg/dl Suspect: 100 - 129 mg/dl Border line: 130 - 159 mg/dl High: 160 - 189 mg/dl Very High: >1 90 mg/dl Risk Factor (test code 3.4 0.0-5.0 Risk Factor = RFACT) Men Women R isk Factor 3.4 3.3 1/ 2 Average 5.0 4.4 Average 9.6 7.1 2X Average 24.0 11.0 3X Average vLDL (test code = 9 mg/dl 30-60 L VLDL) GLYCOSALATED [id number] 22:54:00 Test Item Value Reference Range Interpretation Comments Hemoglobin A1C (test 5.9 % 4.3-6.0 code = GLYCO) Mean Plasma Glucose 133 mg/dl 90-180 WHEN PHOEBE T RESULTS FOR (test code = MPG) A1C EXCEED 14.0, THE LINEAR LIMIT OF THE INSTRUMENT, THE CALCULATED RESU LT FOR THE MEAN GLUCOS E IS NOT RELIABLE. URINALYSIS WITH [id number] 17:38:00 Test Item Value Reference Range Interpretation Comments Color (test code = UCOLR) Lt. Yellow Clarity (test code = UCLAR) CLEAR Glucose (test code = UGLUC) >=1000 NEGATIVE A Bilirubin (test code = UBILI) NEGATIVE NEGATIVE N Ketones (test code = UKET) NEGATIVE NEGATIVE N Specific [place] (test code = 1.020 1.005-1.030 A USPGR) Blood (test code = UBLD) NEGATIVE NEGATIVE N PH (test code = UPH) 6.0 4.5-8.0 A Protein (test code = UPROT) NEGATIVE NEGATIVE N Urobilinogen (test code = U UROB) 0.2 >0.2 N Nitrite (test code = UNITR) NEGATIVE NEGATIVE N Leukocyte Esterase (test code = NEGATIVE NEGATIVE N ULEUK) WBC (test code = WBCUR) 0-1 0-5 A RBC (test code = RBCUR) None Seen 0-5 A Epithial Cells (test code = U EPI) 0-1 0-10 A Bacteria (test code = UBACT) Trace None Seen,Trace N CT HEAD W/O [id number] 17:00:20Examination: CT head without contrastClinical Indication: Rule out stroke.Technique: Transaxial noncontrast images from the skull base through the vertexwere obtained. Sagittal and coronal reformatted images were done.Comparison: None.Findings:Scalp: No abnormalities.Bones: Intact. No fractures. No blastic or lytic lesions.Brain sulci: Appropriate for patient's age.Ventricles: Normal in size and conf iguration. No hydrocephalus.Extra-axial space:No abnormalities.Parenchyma:No abnormal densities.Nomasses, hemorrhage, or acute or chronic vascular insults.Suprasellar region: No abnormalities.Craniocervical junction: The foramen magnum is patent. No Chiari onemalformation.Incidental findings:None.I mpression:No intracranial finding.This final report was electronically signed by Dr Radha Campos MD 07/10/20174:54 PMDictated By: Kenton HUGHES: 07/10/2017 17:00XR CHEST AP/PA 1 [id number] 16:38:58 EXAMINATION: XR CHEST AP/PA 1 VIEW 07/10/2017 3:19 PMCOMPARISON: October 26, 2011INDICATION: TIADISCUSSION:LINES: None.LUNGS: Low lung volumes with subsegmental atelectasis in the lung bases. Nopneumonia or pulmonary edema.PLEURA: No pleural effusion or pneumothorax.HEART AND MEDIASTINUM: The cardiomediastinal silhouette is unremarkable.BONES AND SOFT TISSUES: Prior cervical fusion. The soft tissues are normal.IMPRESSION:No acute cardiopulmonary disease.Brad Barrera MDThifrancisca final report was electronically signed by Dr Brad Barrera MD 07/10/20174:32 PMDictated By: Shon BARRERA: 07/10/2017 16:38TROPONIN-I [id number] 16:02:00 Test Item Value Reference Range Interpretation Comments Troponin-I (test <0.012 ng/ml 0.000-0.034 N [address] URL code = TROP) is 0.034 ng/mL. The Joint Society of Cardiology/[place] College of Card iology (ESC/ACC) and t he [facility] of Clinical [facility] mason Standards of La boratory Practices (NACB ) recommends that the diagnosis of AM I includes the presence of clinical history suggest sandoval of Acute Coronary Syndrome (ACS) and a max imum concentration o f cardiac troponin exceed ing the 99th percentile of a normal referenc e population [upp er reference limit (URL)] on at least one oc casion during the firs t 24 hours after the clini [place] event. [id number] 16:02:00 Test Item Value Reference Range Interpretation Comments CPK (test code = CPK) 187 U/L 30-135 H [id number] 15:51:00 Test Item Value Reference Range Interpretation Comments Glucose (test code 318 mg/dl 75-110 H = GLU) BUN (test code = 13.0 mg/dl 6.0-17.0 BUN) Creatinine (test 0.9 mg/dl 0.4-1.2 code = CREA) Sodium (test code = 142 mmol/l 137-145 NA) Potassium (test 4.1 mmol/l 3.5-5.0 code = K) Chloride (test code 102 mmol/l 98-107 = CL) CO2 (test code = 21 mmol/l 22-30 L CO2) Anion Gap (test 19 code = GAP) Calcium (test code 9.7 mg/dl 8.4-10.2 = CALC) T Protein (test 7.2 gm/dl 5.1-8.7 code = TP) Albumin (test code 4.2 gm/dl 3.5-4.6 = ALB) A/G Ratio (test 1.4 % 1.1-2.2 code = AGRAT) AST (SGOT) (test 32 U/L 11-36 code = AST) ALT (SGPT) (test 49 U/L 11-40 H code = ALT) Alkaline Phos (test 65 U/L 47-114 code = ALKP) Total Bilirubin 0.3 mg/dl 0.2-1.2 (test code = TBIL) Globulin (test code 3.0 gm/dl 2.3-3.5 = GLOBU) Calcium, Corrected 9.5 mg/dl 8.4-10.2 Various f ormulas exist (test code = for corrected s ligia CALCCORR) calcium results , each yielding differ ent values. This corrected resul t was based on the fo rmula: Corrected Calci um = SerumCalcium + [0.8 * ( 4 - SerumAlbu min)] EGFR if >60 Serbian (test code mL/min/1.73m\\ = EGFRAA) S\\2 EGFR if Non- >60 Estimate d Glomerular Serbian (test code mL/min/1.73m\\ Filtrat ion Rate (eGFR) = EGFRNA) S\\2 Reference Inter vals Decision Points for 18 years and older and average body ma ss: >= 60 Does not exc lude kidney disease. 30 - 59 Suggests modera te chronic kidney disease and indicat es the need for furthe r investigation including asses sment of proteinuria and cardiovascular factors. < 30 Usually in dicates a need for refe rral for assessment and management of c hronic kidney failure. [id number] 15:47:00 Test Item Value Reference Range Interpretation Comments aPTT (test code = PTT) 25.9 seconds 25.3-35.7 PT AND [id number] 15:47:00 Test Item Value Reference Range Interpretation Comments Protime (test code 10.5 seconds 9.0-11.8 = PT) INR (test code = 1.0 0.9-1.1 INR results are INR) intended ONLY t o monitor Oral Anticoagulant t herapy in stablized pa tients. The INR Therape utic Range is 2.0 - 3.0 Patients with a mechanical hear t, the INR Range is 2. 5 - 3.5 CBC WITH AUTO [id number] 15:39:00 Test Item Value Reference Range Interpretation Comments WBC (test code = 9.26 10\\S\\3/ul 4.80-10.80 WBC) RBC (test code = 4.91 10\\S\\6/ul 4.70-6.10 RBC) Hemoglobin (test 14.6 gm/dl 14.0-18.0 code = HGB) Hematocrit (test 43.9 % 42.0-50.0 code = HCT) MCV (test code = 89.4 fL 80.0-94.0 MCV) MCH (test code = 29.7 pg 27.0-31.0 MCH) MCHC (test code = 33.3 gm/dl 33.0-37.0 MCHC) RDW (test code = 13.6 % 11.5-14.5 RDWVC) Platelet (test code 270 10\\S\\3/ul 130-400 = PLT) MPV (test code = 12.4 fL 7.4-10.4 A "NOT MEASUR ED" MPV) RESULTS ARE DIS PLAYED WHEN THE INSTRU MENT HAS A SUPPRESSE D OR UNREPORTABLE RE SULT. THIS WILL MOST OFTEN HAPPEN WITH THE MPV WHEN THERE IS A N ABNORMAL PLATEL ET DISTRIBUTION DU E TO A CRITICAL LOW VA LUE OR PLATELET CLUMPI NG. THE RDW MAY BE SUPPRESSED IF T HERE ARE MULTIPLE PE AKS PRESENT ON THE RBC HISTOGRAM. IN THIS CASE, A MANUAL REVIEW OF THE SLIDE WI LL BE PERFORMED, AND RBC MORPHOLOGY WILL BE NOTED ON THE RE PORT. NE% (test code = 86.5 % 42.0-75.0 H NE) LY% (test code = 11.0 % 13.0-42.0 L LY) MO% (test code = 1.4 % 4.0-14.0 L MO) EO% (test code = 0.1 % 1.0-3.0 L EO) BA% (test code = 0.1 % 1.0-3.0 L BA) IG% (test code = 0.9 % 0.0-0.4 H IG%) TIC MRI LSPINE WO/W [id number] 14:04:32NIJ=051.1 Previous lumbar surgery x2. Lumbar pain onset 03/14/17, beginning to lose bowel control.Procedure: TIC MRI LSPINE WO/W CONTExam Date: 03/25/2017 11:45 AMOrder[address] Provider: DR MEENA Carlos DESHPANDEClinical Indication: LOW BACK PAIN. Previous lumbar spine surgery. Loss ofbowel control.Comparison: January 26, 2010Technique: Multisequence, multiplanar images of the lumbar spine were obtainedwithout and with intravenous gadolinium based contrast.Findings:The lumbar vertebral body heightand alignment are normal.There is evidence of diffuse STIR signal elevation enhancement involving theinferior two thirds of the L4 vertebral body. This may be from a prominentinferior endplate Schmorl's node. Subtle edema and enhancement also involve thesuperior endplate of L5 vertebral body. A small Schmorl's node is also seen atthe superior endplate of L5.The conus terminates at mid L1 level, within normal limits. Nerve roots of thecauda equina are unremarkable.L1-L2: Shallow disc bulge and bilateral mild facet degeneration. Mild centralcanal stenosis and mild left neural foraminal stenosis.L2-L3: Circumferential disc bulge and bilateral moderate facet degeneration.Mild to moderate central canal stenosis. No significant neural foraminalstenosis.L3-L4: Shallow disc bulge, moderate bilateral facet degeneration withsuperimposed facet joint effusions. Mild central canal stenosis. Moderate leftneural foraminal stenosis.L4-L5: Previous laminotomy at this level. Central canal is decompressed. Mildleft neural foraminal stenosis.L5-S1: Severe bilateral facet degeneration. No significant stenosis.Other: None.Impression:Multilevel, multifactorial spondylosis notably at L2-L3 where there is mild tomoderate central canal stenosis.Varying degrees of mild to moderate neural foraminal stenosis, as described.Previous L4-L5 laminotomy. Central canal is decompressed at this level.Prominent enhancement and edema involving the L4 vertebral body likely from aacute/subacute inferior endplate Schmorl's node. No compression fracture ispresent.This final report was electronically signed by Dr Esha Evans MD 1 05/25/20161:58 PMDictated By: Marie EVANSte: 03/25/2017 14:04XR LUMBAR SPINE (AP/LATERAL)2017-03-23 15:45:44Procedure: XR LUMBAR SPINE (AP/LATERAL)Exam Date: 03/23/2017 2:12 PMOrdering Provider: DR SEE DREWlinical Indication: LOW BACK PAINComparison: NoneFindings:There is mild L2-3 disc space narrowing and multilevel endplate spurring. Noacute fracture or focal osseous destruction is present. The SI joints areintact. Soft tissues are unremarkable.IMPRESSION:No acute osseous abnormality.MildL2-L3 degenerative disc disease.This final report was electronically signed by Dr Esha Evans MD 1 05/23/20163:39 PMDictated By: Marie EVANSte: 03/23/2017 15:45CULTURE, [id number] 07:49:00S/W DR. NANCE. TEST GOT MISSED ON 07/17/2016. RUN WHAT TEST WE CAN ON FLUIDSpecimen/Source: Knee Fluid/Body FluidCollected: 07/17/2016 15:55 Status: Final Last Updated: 07/23/2016 07:49 (1) S/W DR. NANCE. TEST GOT MISSED ON 07/17/2016. RUN WHAT TEST WE CAN ONFLUIDCulture Result (Final) (Final) No Anaerobes IsolatedCULTURE, [id number] 07:47:00S/W DR NANCE. TEST GOT MISSED ON 07/17/2016. RUN WHAT WE CAN ON THE FLUID THAT WE HAVE. Specimen/Source: Knee Fluid/Body FluidCollected: 07/17/2016 15:55 Status: Final Last Updated: 07/23/2016 07:47 (1) S/W DR NANCE. TEST GOT MISSED ON 07/17/2016. RUN WHAT WE CAN ON THEFLUID THAT WE HAVE. Culture Result (Final) (Final) No Growth After 72 HoursPROTEIN, TOTAL (BF)2016-07-21 11:02:00 Test Item Value Reference Range Interpretation Comments T Protein (BF) (test code = TPBF) 3.5 gm/dl 2.0-11.0 If a specimen is collected by a nurse, then you MUST fill out the Collected and Collected By ceballos s/w dr nance he said run what we can on it. These test got missed on 07/17/2016URIC [id number] 14:01:00 Test Item Value Reference Range Interpretation Comments Uric Acid (test code = URICA) 6.7 mg/dl 2.4-7.2 S/W DR. NANCE, TEST NOT ORDERED BY REGISTRATION, DO WHAT WE CAN ON THE SPECIMENC- REACTIVE [id number] 14:01:00 Test Item Value Reference Range Interpretation Comments C REACTIVE PROTEIN (test code = <0.5 ng/ml 0.0-0.9 N CRP) S/W DR. NANCE. TEST NOT ORDERED BY REGISTRATION, DO WHAT WE CAN ON THE SPECIMEN WE HAVE.GLUCOSE, BODY [id number] 13:51:00 Test Item Value Reference Range Interpretation Comments Glucose (BF) (test code = GLUBF) 88 mg/dl 40-70 H If a specimen is collected by a nurse, then you MUST fill out the Collected and Collected By ceballos s/w dr nance he said run what we can on it. These test got missed on 07/17/2016CRYSTAL IDENTIFICIATION, [id number] 13:43:00 If a specimen is collected by a nurse, then you MUST fill out the Collected and Collected By ceballos s/w dr nance he said run what we can on it. These test got missed on 07/17/2016Specimen: Body FluidCollected: 07/17/2016 15:55 Status: Final Last Updated: 07/20/2016 13:43 (1) If a specimen is collected by a nurse, then you MUST fill outthe Collected and Collected By ceballos s/w dr nance he said run what we can on it. These test got missed on07/17/2016 Crystal ID, BF (Final) (Final) No Crystals Seen CBC WITH MANUAL [id number] 19:01:00 Test Item Value Reference Range Interpretation Comments WBC (test code = WBC) 10.2 k/ul 4.8-10.8 RBC (test code = RBC) 6.30 Millions/ul 4.70-6.10 H Hemoglobin (test code = HGB) 16.1 gm/dl 14.0-18.0 Hematocrit (test code = HCT) 50.3 % 42.0-50.0 H MCV (test code = MCV) 79.9 fL 80.0-94.0 L MCH (test code = MCH) 25.6 pg 27.0-31.0 L MCHC (test code = MCHC) 32.0 gm/dl 33.0-37.0 L RDW (test code = RDWVC) 16.1 % 11.5-14.5 H Platelet (test code = PLT) 256 10\\S\\3/ul 130-400 MPV (test code = MPV) 12.5 fL 7.4-10.4 H Neutrophils (test code = 50 % 42-75 NEUTR) Lymphocytes (test code = 42 % 13-42 LYMPH) Monocytes (test code = 6 % 4-14 MONOS) Eosinophils (test code = 2 % 1-3 EOS) Nucleated RBC (test code = 3 /100WBC 0-0 H NRBC) [id number] 17:59:00 Test Item Value Reference Range Interpretation Comments Glucose (test code 92 mg/dl 75-110 = GLU) BUN (test code = 19.0 mg/dl 6.0-17.0 H BUN) Creatinine (test 0.9 mg/dl 0.4-1.2 code = CREA) Sodium (test code = 144 mmol/l 137-145 NA) Potassium (test 3.9 mmol/l 3.5-5.0 code = K) Chloride (test code 101 mmol/l 98-107 = CL) CO2 (test code = 25 mmol/l 22-30 CO2) Calcium (test code 9.4 mg/dl 8.4-10.2 = CALC) EGFR if >60 Serbian (test code mL/min/1.73m\\ = EGFRAA) S\\2 EGFR if Non- >60 Estimate d Glomerular Serbian (test code mL/min/1.73m\\ Filtrat ion Rate (eGFR) = EGFRNA) S\\2 Reference Inter vals Decision Points for 18 years and older and average body ma ss: >= 60 Does not exc lude kidney disease. 30 - 59 Suggests modera te chronic kidney disease and indicat es the need for furthe r investigation including asses sment of proteinuria and cardiovascular factors. < 30 Usually in dicates a need for refe rral for assessment and management of c hronic kidney failure.
--- OUTSIDE RECORDS SUMMARY | 2019-10-25 10:52 | XMS REPORT | Summary of Care ---
:1960 Author Organization [facility] Address [address] [place] [address] Care Team Providers Name Role Phone Pcp, Patient Does Not Have A Primary Care Provider [phone] Reason for Referral Radiology Services (Routine) Status Reason Specialty Diagnoses / Referred By Referred To Procedures Contact Contact New Request Diagnostic Diagnoses Right knee pain, unspecified chronicity Marin Sibley, Radiology Procedures XR KNEE <3 VW RIGHT PAC [address] [place] [address] Reason for Visit Reason Comments Follow-up Knee Pain chronic right knee pain Encounter Details Date Type Department Care Team Description 09/25/2019 Office Visit [facility] Orthopaedic Marin Sibley P ainful orthopaedic hardware (Primary Dx); Surgery- [facility] Right knee pain, unspecified chronicity [address], [address] [place] [address] [place] [address] [address] [place], [place] [phone] [address] Allergies No Known Allergiesdocumented as of this encounter (statuses as of 09/25/2019) Medications Medication Sig Dispensed Refills Start Date End Date Status atorvastatin 10 mg tablet Take 20 mg by 0 Active mouth at bedtime. metFORMIN 1,000 mg tablet Take 1,000 mg 0 Active by mouth 2 (two) times daily with meals. diltiazem (CARTIA XT) 120 Take 120 mg by 0 Active mg 24 hr capsule mouth daily. cyclobenzaprine 10 mg Take 10 mg by 0 Active tablet mouth 3 (three) times daily. lisinopril 20 mg tablet Take 20 mg by 0 Active mouth daily. amiodarone 200 mg tablet Take 200 mg by 0 Active mouth daily. gabapentin 300 mg capsule Take 300 mg by 0 Active mouth 3 (three) times daily. DICLOFENAC 75 mg EC TAKE 1 TABLET 60 tablet 0 09/04/2019 Active tabletIndications: Right BY MOUTH TWICE knee pain, unspecified DAILY WITH chronicity MEALS DICLOFENAC 75 mg EC TAKE 1 TABLET 60 tablet 0 09/04/2019 Active tabletIndications: Right BY MOUTH TWICE knee pain, unspecified DAILY WITH chronicity MEALS documented as of this encounter (statuses as of 09/25/2019) Active Problems Not on filedocumented as of this encounter (statuses as of 09/25/2019) Social History Tobacco Use Types Packs/Day Years Used Date Never Smoker Smokeless Tobacco: Never Used Alcohol Use Drinks/Week oz/Week Comments Never Alcohol Habits Answer Date Recorded How often do you have a drink containing alcohol? Never 04/17/2019 How many drinks containing alcohol do you have on a typical Not asked day when you are drinking? How often do you have six or more drinks on one occasion? No t asked Sex Assigned at Date Recorded Not on file Job Start Date Occupation Industry Not on file Not on file Not on file Travel History Travel Start Travel End No recent travel history available. COVID-19 Exposure Response Date Recorded In the last month, have you been in contact with No / Unsure 09/25/2019 3:27 PM CDT someone who was confirmed or suspected to have Coronavirus / COVID-19? documented as of this encounter Last Filed Vital Signs Vital Sign Reading Time Taken Comments Blood Pressure 137/96 09/25/2019 3:38 PM CDT Pulse 102 09/25/2019 3:38 PM CDT Temperature - - Respiratory Rate - - Oxygen Saturation - - Inhaled Oxygen Concentration - - Weight 129.3 kg (285 lb) 09/25/2019 3:35 PM CDT Height 182.9 cm (6') 09/25/2019 3:35 PM CDT Body Mass Index 38.65 09/25/2019 3:35 PM CDT documented in this encounter Progress Notes Marin Sibley S, PAC - 09/25/2019 3:45 PM CDT Cc: Chief Complaint Patient presents with Follow-up Knee Pain chronic right knee pain Came in wbat, no dme for assistance, does have pains and feels they have increased and moved around to other joints, hip especially. Marquita Chappell 09/25/2019 3:37 PM Missael Beaulieu is a 58 year old male. Right knee he has been experiencing a pain across the medial and lateral joint line when he steps upon a step he is status post total knee replacement in his right knee. His surgery was 2014 it was performed in [place]. We discussed previously that he may be having some episodes of gout he gets swelling intermittently in his right knee. Allergies Missael has No Known Allergies. Medications Outpatient Medications Prior to Visit Medication Sig Dispense Refill DICLOFENAC 75 mg EC tablet TAKE 1 TABLET BY MOUTH TWICE DAILY WITH MEALS 60 tablet 0 DICLOFENAC 75 mg EC tablet TAKE 1 TABLET BY MOUTH TWICE DAILY WITH MEALS 60 tablet 0 amiodarone 200 mg tablet Take 200 mg by mouth daily. atorvastatin 10 mg tablet Take 20 mg by mouth at bedtime. cyclobenzaprine 10 mg tablet Take 10 mg by mouth 3 (three) times daily. diltiazem (CARTIA XT) 120 mg 24 hr capsule Take 120 mg by mouth daily. gabapentin 300 mg capsule Take 300 mg by mouth 3 (three) times daily. lisinopril 20 mg tablet Take 20 mg by mouth daily. metFORMIN 1,000 mg tablet Take 1,000 mg by mouth 2 (two) times daily with meals. No facility-administered medications prior to visit. Histories No past medical history on file. Past Surgical History: Procedure Laterality Date JOINT SURGERY Right 01/2016 PACEMAKERS INSERTION SPINE SURGERY cervical multilevel fusion / laminectomy x's 2 Social History Socioeconomic History Marital status: Spouse name: Not on file Number of children: Not on file Years of education: Not on file Highest education level: Not on file Occupational History Not on file Social Needs Financial resource strain: Not on file Food insecurity: Worry: Not on file Inability: Not on file Transportation needs: Medical: Not on file Non-medical: Not on file Tobacco Use Smoking status: Never Smoker Smokeless tobacco: Never Used Substance and Sexual Activity Alcohol use: Never Frequency: Never Drug use: Not on file Sexual activity: Not on file Lifestyle Physical activity: Days per week: Not on file Minutes per session: Not on file Stress: Not on file Relationships Social connections: Talks on phone: Not on file Gets together: Not on file Attends anabaptist service: Not on file Active member of club or organization: Not on file Attends meetings of clubs or organizations: Not on file Relationship status: Not on file Intimate partner violence: Fear of current or ex partner: Not on file Emotionally abused: Not on file Physically abused: Not on file Forced sexual activity: Not on file Other Topics Concern Not on file Social History Narrative Not on file Family History Problem Relation Age of Onset Diabetes Mother Stroke Mother Cancer Mother Heart Mother Review of Systems Constitutional: Positive for activity change. HENT: Negative. Eyes: Negative. Respiratory: Negative. Gastrointestinal: Negative. Genitourinary: Negative. Musculoskeletal: Negative for gait problem and joint swelling. Psychiatric/Behavioral: Negative. Endocrine: Endocrine negative Vital Signs BP (!) 140/88 | Pulse 102 | Ht 72" (182.9 cm) | Wt 129.3 kg (285 lb) | BMI 38.65 kg/m Physical Exam Musculoskeletal: Physical Exam Constitutional: oriented to person, place, and time. appears well-developed and well-nourished. HENT: Head: Normocephalic and atraumatic. Right Ear: External ear normal. Left Ear: External ear normal. Eyes: Conjunctivae are normal. Neck: Normal range of motion. No strabismus Neck supple. Cardiovascular: Normal rate and regular rhythm. Pulmonary/Chest: Normal respiratory rate equal chest rise and fall in no apparent distress Abdominal: Abdomen nondistended nontender Neurological: alert and oriented to person, place, and time. No asymmetry Skin: Skin is warm and dry. Psychiatric: normal mood and affect. behavior is normal. Judgment and thought content normal. Nursing note and vitals reviewed. Right knee he has a good ligamentous stability for status post total knee replacement he does have asmall clack on the lateral compartment after varus stress returning to valgus position his knee is not hot to the touch there is no erythema he doesn't have a knee effusion he has a very nicely healed incision. Has more than 120 of flexion. 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 Painful orthopaedic hardware 2. Right knee pain, unspecified chronicity XR KNEE <3 VW RIGHT He had lab work at his last office visit that did not show any signs of infection the sedimentation rate was 12, we'll proceed with a CT arthrogram of his right knee and follow up with the results with Dr. Rae. documented in this encounter Plan of Treatment Health Maintenance Due Date Last Done Comments HEPATITIS C (HCV) SCREEN 1960 DTaP,Tdap,and Td Vaccines (1 - 10/30/1970 Tdap) COLONOSCOPY 10/30/2009 Zoster Recombinant Vaccine 10/30/2009 (SHINGRIX) (1 of 2) INFLUENZA VACCINE (Season Ended) 2020 02/28/2018 PNEUMOCOCCAL 0-64 YEARS COMBINED Aged Out No longer eligible based on SERIES patient's age to complete this topic documented as of this encounter Results XR KNEE <3 VW RIGHT (09/25/2019 4:20 PM CDT) Specimen Narrative Performed At This result has an attachment that is no t available. reviewed by Dr. Rae no sign of loosening PACS Performing Organization Address City/State/Zipcode Phone Number PACS documented in this encounter Visit Diagnoses Diagnosis Painful orthopaedic hardware - Primary Right knee pain, unspecified chronicity documented in this encounter Insurance Payer Benefit Plan Subscriber ID Effective Dates Phone Address Type / Group BCBS [facility] [id number] 2019-Jalyn [phone] [address] PPO/POS [place] nt [id number] [place] [address] documented as of this encounter
--- OUTSIDE RECORDS SUMMARY | 2019-10-25 10:52 | XMS REPORT | Summary of Care ---
:1960 Author Organization [facility] Address [address] [place] [address] Care Team Providers Name Role Phone Pcp, Patient Does Not Have A Primary Care Provider +1-000-00 0-0000 Reason for Visit Reason Comments Refill Request Encounter Details Date Type Department Care Team Description 09/03/2019 Refill [facility] Orthopaedic Roxanna Sibley, PAC Refill Request Surgery- [place] [address] [facility], [place] [address] [address] [place] [address] [phone] Allergies No Known Allergiesdocumented as of this encounter (statuses as of 09/04/2019) Medications Medication Sig Dispensed Refills Start Date [...] as of this encounter (statuses as of 09/04/2019) Active Problems Not on filedocumented as of this encounter (statuses as of 09/04/2019) Social History Tobacco Use Types Packs/Day Years [...] Travel End No recent travel history available. documented as of this encounter Last Filed Vital Signs Not on filedocumented in this encounter Plan of Treatment Health Maintenance Due Date Last Done Comments HEPATITIS C (HCV) SCREEN 1960 DTaP,Tdap,and Td Vaccines (1 - 10/30/1970 Tdap) COLONOSCOPY 10/30/2009 Zoster Recombinant Vaccine 10/30/2009 (SHINGRIX) (1 of 2) INFLUENZA VACCINE (#1) 2019 02/28/2018 PNEUMOCOCCAL 0-64 YEARS COMBINED Aged Out No longer eligible based on SERIES patient's age to complete this topic documented as of this encounter Results Not on filedocumented in this encounter Visit Diagnoses Diagnosis Right knee pain, unspecified chronicity documented in this encounter Insurance Payer Benefit Plan Subscriber ID Effective Dates Phone Address Type / [facility] [id number] 2019-Jalyn [phone] [address] PPO/POS [facility] 7 [id number] [place] [address] documented as of this encounter
--- OUTSIDE RECORDS SUMMARY | 2019-10-25 10:52 | XMS REPORT | Summary of Care ---
:1960 Author Organization [facility] Address [address] [place] [address] Care Team Providers Name Role Phone Pcp, Patient Does Not Have A Primary Care Provider +1-000-00 0-0000 Reason for Referral Radiology Services (Routine) Status Reason Specialty Diagnoses / Referred By Referred To Procedures Contact Contact New Request Diagnostic Diagnoses Right knee pain, unspecified chronicity Marin Sibley, Radiology Procedures XR KNEE <3 VW RIGHT PAC [address] [place] [address] Reason for Visit Reason Comments Follow-up Knee Pain chronic right knee pain Encounter Details Date Type Department Care Team Description 09/25/2019 Office Visit [facility] Orthopaedic Marin Sibley P ainful orthopaedic hardware (Primary Dx); Surgery- [facility] Right knee pain, unspecified chronicity [address], [address] [place] [address] [place], [place] [phone] [address] Allergies No Known Allergiesdocumented as of this encounter (statuses as of 09/25/2019) Medications Medication Sig Dispensed Refills Start Date End Date Status atorvastatin 10 mg Take 20 mg by 0 Active tablet mouth at bedtime. metFORMIN 1,000 mg Take 1,000 mg by 0 Active tablet mouth 2 (two) times daily with meals. diltiazem (CARTIA XT) Take 120 mg by 0 Active 120 mg 24 hr capsule mouth daily. cyclobenzaprine 10 mg Take 10 mg by 0 Active tablet mouth 3 (three) times daily. lisinopril 20 mg tablet Take 20 mg by 0 Active mouth daily. amiodarone 200 mg tablet Take 200 mg by 0 Active mouth daily. gabapentin 300 mg Take 300 mg by 0 Active capsule mouth 3 (three) times daily. DICLOFENAC 75 mg EC TAKE 1 TABLET BY 60 tablet 0 09/04/2019 Active tabletIndications: Right MOUTH TWICE knee pain, unspecified DAILY WITH MEALS chronicity DICLOFENAC 75 mg EC TAKE 1 TABLET BY 60 tablet 0 09/04/2019 Active tabletIndications: Right MOUTH TWICE knee pain, unspecified DAILY WITH MEALS chronicity methylPREDNISolone Take 21 tablets 1 Each 0 09/25/2019 Active (MEDROL, ROXANN,) 4 mg by mouth tabletsIndications: SEE-INSTRUCTIONS Painful orthopaedic . follow package hardware, Right knee directions pain, unspecified chronicity documented as of this encounter (statuses as [...] documented in this encounter Progress Notes Marin Sibley, PAC - 09/25/2019 3:45 PM CDT Cc: [...] surgery was 2014 it was performed in [place]. We discussed previously that he may be [...] file Gets together: Not on file Attends episcopalian service: Not on file Active member of [...] reviewed from April 17, 2019 there is [id number] osteoarthritis in the medial joint space of [...] Effective Dates Phone Address Type / Group [facility] [id number] 2019-Prese [phone] [address] PPO/POS [place] nt [id number] [place] [address] documented as of this encounter
--- OUTSIDE RECORDS SUMMARY | 2019-10-25 10:52 | XMS REPORT | Summary of Care ---
:1960 Author Organization [facility] Address [address] [place] [address] Care Team Providers Name Role Phone Pcp, Patient Does Not Have A Primary Care Provider +1-000-00 0-0000 Reason for Referral MRI/CAT Scan (Routine) Status Reason Specialty Diagnoses / Referred By Referred To Procedures Contact Contact New Request Diagnostic Diagnoses Painful orthopaedic hardware Aaron Rae Radiology Procedures CT knee right with contrast MD Rosa [address] [place] [address] (Routine) Status Reason Specialty Diagnoses / Referred By Referred To Procedures Contact Contact New Request Diagnostic Diagnoses Painful orthopaedic hardware Aaron Rae Radiology Procedures Fluoroscopy arthrogram knee right MD [address] [place] [address] Reason for Visit Reason Comments Orders Encounter Details Date Type Department Care Team Description 09/26/2019 Telephone [facility] Orthopaedic Roxanna Sibley, PAC Orders Surgery- [facility] [address] [place] [address] [address] [place] [address] Allergies No Known Allergiesdocumented as of this encounter (statuses as of 09/26/2019) Medications Medication Sig Dispensed Refills Start Date [...] as of this encounter (statuses as of 09/26/2019) Active Problems Not on filedocumented as of this encounter (statuses as of 09/26/2019) Social History Tobacco Use Types Packs/Day Years [...] filedocumented in this encounter Plan of Treatment Name Type Priority Associated Diagnoses Order S chedule Fluoroscopy arthrogram IMAGING Routine Painful orthopaedi c Expected: knee right hardware 09/26/2019, Exp ires: 09/25/2020 CT knee right with IMAGING Routine Painful orthopaedic Ex pected: contrast hardware 09/26/2019, Exp ires: 09/25/2020 CREATININE LAB Routine Painful orthopaedic Expected : hardware 09/26/2019, Exp ires: 09/25/2020 Health Maintenance Due Date Last Done Comments [...] filedocumented in this encounter Visit Diagnoses Diagnosis Painful orthopaedic hardware - Primary documented in this encounter Insurance Payer Benefit Plan Subscriber ID Effective Dates Phone Address Type / Group [facility] [id number] 2019-Jalyn [phone] [address] PPO/POS [facility] 7 [id number] [place] [address] documented as of this encounter
--- OUTSIDE RECORDS SUMMARY | 2019-10-25 10:52 | XMS REPORT | Summary of Care ---
:1960 Author Organization [facility] Address [address] [place] [address] Care Team Providers Name Role Phone Pcp, Patient Does Not Have A Primary Care Provider +1-000-00 0-0000 Reason for Referral MRI/CAT Scan (Routine) Status Reason Specialty Diagnoses / Referred By Referred To Procedures Contact Contact New Request Diagnostic Diagnoses Painful orthopaedic hardware Aaron Rae Radiology Procedures CT knee right with contrast [place] [address] [place] [address] (Routine) Status Reason Specialty Diagnoses / Referred By Referred To Procedures Contact Contact New Request Diagnostic Diagnoses Painful orthopaedic hardware Aaron Rae Radiology Procedures Fluoroscopy arthrogram knee right [place] [address] [place] [address] Reason for Visit Reason Comments Orders Please send CT orders somewh ere else. The previous place is unable to do it. Their machine is broken Encounter Details Date Type Department Care Team Description 10/18/2019 Telephone [facility] Orthopaedic Aaron Rae (Please send CT Surgery- Saul Lee MD orders somewhere else. [address] Brian Verdugo [address] previous [address] is [address] [place] [address] [address] [place], [place] machine is broken ) [phone] [address] Allergies No Known Allergiesdocumented as of this encounter (statuses as of 10/18/2019) Medications Medication Sig Dispensed Refills Start Date [...] as of this encounter (statuses as of 10/18/2019) Active Problems Not on filedocumented as of this encounter (statuses as of 10/18/2019) Social History Tobacco Use Types Packs/Day Years [...] arthrogram IMAGING Routine Painful orthopaedi c Expected: 10/18/2019, knee right hardware Expires: 2020 CT knee right with IMAGING Routine Painful orthopaedic Ex pected: 10/18/2019, contrast hardware Expires: 2020 CREATININE LAB Routine Painful orthopaedic 1 Occurr ences starting hardware 10/18/2019 unti l 11/17/2019 Health Maintenance Due Date Last Done Comments HEPATITIS C (HCV) SCREEN 1960 DTaP,Tdap,and Td Vaccines (1 - 10/30/1970 Tdap) COLONOSCOPY 10/30/2009 Zoster Recombinant Vaccine 10/30/2009 (SHINGRIX) (1 of 2) INFLUENZA VACCINE (Season Ended) 2020 02/28/2018 Depression Screening 04/24/2020 04/24/2019 PNEUMOCOCCAL 0-64 YEARS COMBINED Aged Out No longer eligible based on SERIES patient's age to complete this topic documented as of this encounter Results Not on filedocumented in this encounter Visit Diagnoses Diagnosis Painful orthopaedic hardware - Primary documented in this encounter Insurance Payer Benefit Plan Subscriber ID Effective Dates Phone Address Type / Group [facility] [id number] 2019-Jalyn [phone] [address] PPO/POS [place] nt [id number] [place] [address] documented as of this encounter
--- OUTSIDE RECORDS SUMMARY | 2019-10-25 10:52 | XMS REPORT | Summary of Care ---
:1960 Author Organization [facility] Address [address] [place] [address] Care Team Providers Name Role Phone Pcp, Patient Does Not Have A Primary Care Provider +1-000-00 0-0000 Encounter Details Date Type Department Care Team Description 09/25/2019 Hospital Encounter [facility] Marin Sibley [facility] Orthopedics - PAC Radiology [address] [place] [address] [address] [place], [place] [phone] [address] [phone] Allergies No Known Allergiesdocumented as of this [...] this topic documented as of this encounter Procedures Procedure Name Priority Date/Time Associated Diagnosis Comme nts XR KNEE <3 VW RIGHT Routine 09/25/2019 4:20 PM Right knee chyna n, Results for this CDT unspecified procedure are i n chronicity the results section. documented in this encounter Results XR KNEE <3 VW RIGHT (09/25/2019 4:20 PM CDT) Specimen Narrative Performed At This result has an attachment that is no t available. reviewed by Dr. Rae no sign of loosening PACS Performing Organization Address City/State/Zipcode Phone Number PACS documented in this encounter Visit Diagnoses Diagnosis Right knee pain, unspecified chronicity documented in this encounter Insurance Payer Benefit Plan Subscriber ID Effective Dates Phone Address Type / Group BCBS [facility] [id number] 2019-Jalyn [phone] [address] PPO/POS [facility] 7 [id number] [place] [address] documented as of this encounter
--- OUTSIDE RECORDS SUMMARY | 2019-10-25 10:52 | XMS REPORT | Summary of Care ---
:1960 Author Organization [facility] Address [address] [place] [address] Care Team Providers Name Role Phone Pcp, Patient Does Not Have A Primary Care Provider +1-000-00 0-0000 Reason for Visit Reason Comments Refill Request Encounter Details Date Type Department Care Team Description 08/30/2019 Refill [facility] Orthopaedic Roxanna Sibley, PAC Refill Request Surgery- [place] [address] [facility], [place] [address] [address] [place] [address] [phone] Allergies No Known Allergiesdocumented as of this encounter (statuses as of 09/04/2019) Medications Medication Sig Dispensed Refills Start Date End Date Status atorvastatin 10 mg Take 20 mg 0 Active tablet by mouth at bedtime. metFORMIN 1,000 mg Take 1,000 0 Active tablet mg by mouth 2 (two) times daily with meals. diltiazem (CARTIA XT) Take 120 mg 0 Active 120 mg 24 hr capsule by mouth daily. cyclobenzaprine 10 mg Take 10 mg 0 Active tablet by mouth 3 (three) times daily. lisinopril 20 mg Take 20 mg 0 Ac tive tablet by mouth daily. amiodarone 200 mg Take 200 mg 0 Active tablet by mouth daily. gabapentin 300 mg Take 300 mg 0 Active capsule by mouth 3 (three) times daily. DICLOFENAC 75 mg EC TAKE 1 60 tablet 0 09/04/2019 Active tabletIndications: TABLET BY Right knee pain, MOUTH TWICE unspecified DAILY WITH chronicity MEALS DICLOFENAC 75 mg EC TAKE 1 60 tablet 0 07/30/2019 0 Discontinued tabletIndications: TABLET BY Right knee pain, MOUTH TWICE unspecified DAILY WITH chronicity MEALS documented as [...] Dates Phone Address Type / Group BCBS [facility] [id number] 2019-Jalyn [phone] [address] PPO/POS [place] nt [id number] [place] [address] documented as of this encounter
--- OUTSIDE RECORDS SUMMARY | 2019-10-25 10:52 | XMS REPORT | Summary of Care ---
:1960 Author Organization [facility] Address [address] [place] [address] Care Team Providers Name Role Phone Pcp, Patient Does Not Have A Primary Care Provider +[phone] 0-0000 Reason for Referral Radiology Services (Routine) Status Reason Specialty Diagnoses / Referred By Referred To Procedures Contact Contact New Request Diagnostic Diagnoses Right knee pain, unspecified chronicity Marin Sibley, Radiology Procedures XR KNEE <3 VW RIGHT PAC [address] [place] [address] Reason for Visit Reason Comments Follow-up Knee Pain chronic right knee pain Encounter Details Date Type Department Care Team Description 09/25/2019 Office Visit [facility] Orthopaedic Marin Sibley P ainful orthopaedic hardware (Primary Dx); Surgery- [facility] Right knee pain, unspecified chronicity [address], [address] [place] [address] [place] [address] [place], [place] [phone] [address] Allergies No Known Allergiesdocumented as of [...] surgery was 2014 it was performed in [place]. We discussed previously that he may be [...] file Gets together: Not on file Attends episcopal service: Not on file Active member of [...] reviewed from April 17, 2019 there is [id number] osteoarthritis in the medial joint space of [...] Dates Phone Address Type / Group [facility] [id number] 2019-Jalyn [phone] [address] PPO/POS [place] [id number] [place] [address] documented as of this encounter
--- OUTSIDE RECORDS SUMMARY | 2019-10-25 10:52 | XMS REPORT | Summary of Care ---
:1960 Author Organization [facility] Address [address] [place] [id number] Care Team Providers Name Role Phone Pcp, Patient Does Not Have A Primary Care Provider +[phone] 0-0000 Reason for Visit Reason Comments Refill Request Encounter Details Date Type Department Care Team Description 07/26/2019 Refill [facility] Orthopaedic Roxanna Sibley, PAC Refill Request Surgery- [place] [address] [facility], [place] [address] [address] [place] [address] [phone] Allergies No Known Allergiesdocumented as of this encounter (statuses as of 07/30/2019) Medications Medication Sig Dispensed Refills Start Date [...] EC TAKE 1 60 tablet 0 07/30/2019 Active tabletIndications: TABLET BY Right knee pain, MOUTH TWICE unspecified DAILY WITH chronicity MEALS DICLOFENAC 75 mg EC TAKE 1 60 tablet 0 06/21/2019 0 Discontinued tabletIndications: TABLET BY Right knee pain, MOUTH TWICE unspecified DAILY WITH chronicity MEALS documented as of this encounter (statuses as of 07/30/2019) Active Problems Not on filedocumented as of this encounter (statuses as of 07/30/2019) Social History Tobacco Use Types Packs/Day Years [...] Dates Phone Address Type / Group BCBS [facility] [id number] 2019-Jalyn [phone] [address] PPO/POS [place] nt [id number] [place] [address] documented as of this encounter
[2019-10-25 10:55] LABS: C-Reactive Protein < 2.90 mg/L (<3.00)
--- NOTE | 2019-10-25 14:00 | RAD REPORT ---
EXAM DESCRIPTION: MRI - Lumbar Spine Wo Con- 10/25/2019 1:45 pm CLINICAL HISTORY: pain Back pain, radiculopathy COMPARISON: None FINDINGS: Vertebral body heights are within normal limits. No aggressive marrow pattern is observed. No fracture is suspected. The conus medullaris terminates at a normal level. No thickening of the cauda equina or clumping of n erve roots seen. L1-2 level: Mild posterior disc bulge is seen asymmetric to the left extraforaminal location. Small f ocal left lateral disc herniation is also present measuring 5 mm. This results in left exit foraminal stenosis. Prominent facet hypertrophy and posterior disc bulge also moderately to significantly narr ows the right exit foramen at this level. Central canal is mildly narrowed. L2-3 level: Broad-based posterior disc bulge with small posterior annular fissure noted. Mild facet a nd ligamentum flavum hypertrophy. Mild central canal narrowing is seen. No significant exit foraminal stenosis. L3-4 level: Moderate posterior disc bulge is seen with facet and ligamentum flavum hypertrophy eviden t. Central canal is moderately narrowed. No significant exit foraminal stenosis. Evidence of previous surgical intervention suspected at this level. L4-5 level: Prominent posterior disc bulge is seen with central posterior annular fissure. Postsurgic al changes are also noted at this level. Moderate facet hypertrophy is noted bilaterally with mild ce ntral canal narrowing mild moderate exit foraminal narrowing is present bilaterally. L5-S1 level: Mild facet hypertrophy is present bilaterally. 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 Significant b ilateral exit foraminal stenosis is seen at L1-2 as detailed.
--- NOTE | 2019-10-25 14:13 | EDPHYS ---
Physician Documentation [facility] Name: Missael Beaulieu Age: 58 yrs Sex: Male : 1960 Arrival Date: 10/25/2019 Time: 09:06 Bed 5 Private MD: ED Physician Lobo Rashid HPI: 10/24 09:45 This 58 yrs old Male presents to ER via Ambulatory with complaints of Hip kdr Pain. 09:45 The patient or guardian reports pain. that occurred at home. The complaints affect the kdr right low back. 09:45 Onset: The symptoms/episode began/occurred gradually, 3 week(s) ago. Modifying factors: kdr The symptoms are alleviated by Non-weight bearing. 10:15 Associated signs and symptoms: Loss of consciousness: the patient experienced no loss kdr of consciousness. Severity of symptoms: At their worst the symptoms were moderate, severe, incapacitating, just prior to arrival, in the emergency department the symptoms are unchanged. The patient has not experienced similar symptoms in the past. The patient has been recently seen by a physician: Had been seen in Dr. Rae's office a few weeks back. At that time, the pain was primarily in and around his knee and they had ordered a CT arthrogram of the knee. Since then, the pain has migrated to the superior medical iliac crest area with some residual pain in the distal knee, right thigh and hip region. He denies. Numbness or weakness in the effective extremity. . Historical: - Allergies: 09:30 No Known Allergies; hb - Home Meds: 09:30 atorvastatin, gabapentin, glipizide, metformin, cyclobenzaprine, cartia, steglatro, hb lisinopril. [Active]; - PMHx: 09:30 Diabetes - NIDDM; High Cholesterol; Hypertension; hb - PSHx: 09:30 Pacemaker/Defib; Back x 3; hb - Immunization history:: Adult Immunizations up to date. - Social history:: Smoking status: Patient denies any tobacco usage or history of. ROS: 10:15 Constitutional: Negative for fever, chills, and weight loss, Eyes: Negative for injury, kdr pain, redness, and discharge, Neck: Negative for injury, pain, and swelling, Cardiovascular: Negative for chest pain, palpitations, and edema, Respiratory: Negative for shortness of breath, cough, wheezing, and pleuritic chest pain, Abdomen/GI: Negative for abdominal pain, nausea, vomiting, diarrhea, and constipation, Back: Negative for injury and pain, : Negative for injury, bleeding, discharge, and swelling, MS/Extremity: Negative for injury and deformity, Skin: Negative for injury, rash, and discoloration, Psych: Negative for depression, anxiety, suicide ideation, homicidal ideation, and hallucinations, Allergy/Immunology: Negative for hives, rash, and allergies, Endocrine: Negative for neck swelling, polydipsia, polyuria, polyphagia, and marked weight changes, Hematologic/Lymphatic: Negative for swollen nodes, abnormal bleeding, and unusual bruising. 10:15 Neuro: Positive for Pain as described above in the right leg from the knee to the right hip. Exam: 10:15 Constitutional: This is a well developed, well nourished patient who is awake, alert, kdr and in no acute distress. Head/Face: Normocephalic, atraumatic. Eyes: Pupils equal round and reactive to light, extra-ocular motions intact. Lids and lashes normal. Conjunctiva and sclera are non-icteric and not injected. Cornea within normal limits. Periorbital areas with no swelling, redness, or edema. Neck: Trachea midline, no thyromegaly or masses palpated, and no cervical lymphadenopathy. Supple, full range of motion without nuchal rigidity, or vertebral point tenderness. No Meningismus. Chest/axilla: Normal chest wall appearance and motion. Nontender with no deformity. No lesions are appreciated. Cardiovascular: Regular rate and rhythm with a normal S1 and S2. No gallops, murmurs, or rubs. Normal PMI, no JVD. No pulse deficits. Respiratory: Lungs have equal breath sounds bilaterally, clear to auscultation and percussion. No rales, rhonchi or wheezes noted. No increased work of breathing, no retractions or nasal flaring. Abdomen/GI: Soft, non-tender, with normal bowel sounds. No distension or tympany. No guarding or rebound. No evidence of tenderness throughout. Skin: Warm, dry with normal turgor. Normal color with no rashes, no lesions, and no evidence of cellulitis. MS/ Extremity: Pulses equal, no cyanosis. Neurovascular intact. Full, normal range of motion. Neuro: Awake and alert, GCS 15, oriented to person, place, time, and situation. Cranial nerves II-XII grossly intact. Motor strength 5/5 in all extremities. Sensory grossly intact. Cerebellar exam normal. Normal gait. Psych: Awake, alert, with orientation to person, place and time. Behavior, mood, and affect are within normal limits. 10:15 Back: pain, that is moderate, that is severe, of the right low back, ROM is normal, mild pain, better with hip flexion, normal spinal alignment noted, CVA tenderness, that is moderate, vertebral tenderness, is not appreciated, muscle spasm, is not present, Straight leg raises: Vital Signs: 09:27 BP 146 / 82; Pulse 75; Resp 16; Temp 97.2; Pulse Ox 97% on R/A; Weight 127.01 kg; hb Height 6 ft. (182.88 cm); Pain 7/10; 10:20 BP 145 / 80; Pulse 66; Resp 18; Pulse Ox 95% on R/A; ph 11:30 BP 137 / 89; Pulse 64; Resp 18; Pulse Ox 98% on R/A; ph 12:30 BP 148 / 76; Pulse 62; Resp 18; Pulse Ox 95% on R/A; ph 14:19 BP 129 / 79; Pulse 60; Resp 17; Pulse Ox 94% on R/A; mh5 09:27 Body Mass Index 37.97 (127.01 kg, 182.88 cm) hb MDM: 10:15 Data reviewed: vital signs, nurses notes, lab test result(s), radiologic studies. kdr Counseling: I had a detailed discussion with the patient and/or guardian regarding: the historical points, exam findings, and any diagnostic results supporting the discharge/admit diagnosis, lab results, radiology results. 14:13 Patient medically screened. kdr 10/24 09:55 Order name: CBC with Diff; Complete Time: 14:11 kdr 10/24 09:55 Order name: Chem 7; Complete Time: 14:11 kdr 10/24 09:55 Order name: ESR; Complete Time: 14:11 kdr 10/24 09:55 Order name: CRP; Complete Time: 14:11 kdr 10/24 10:07 Order name: Lumbar Spine Wo Con; Complete Time: 14:11 EDMS Administered Medications: 09:42 Drug: Ondansetron (Zofran) 4 mg Route: PO; em 10:20 Follow up: Response: No adverse reaction ph 09:44 Drug: [place] 10 mg-325 mg 1 tabs Route: PO; em 10:20 Follow up: Response: No adverse reaction ph 09:44 Not Given (Other Intervention Used): Zofran (Ondansetron) 4 mg IVP once; over 2 minutes em Disposition: 10/25/19 14:13 Discharged to Home. Impression: Low back pain, Pain in right hip. - Condition is Stable. - Discharge Instructions: Musculoskeletal Pain, Back Pain, Adult, [id number], Hip Pain. - Prescriptions for Ibuprofen 800 mg Oral Tablet - take 1 tablet by ORAL route every 8 hours As needed take with food; 15 tablet. Robaxin 500 mg Oral Tablet - take 2 tablet by ORAL route every 6 hours As needed; 40 tablet. Tramadol 50 mg Oral Tablet - take 1 tablet by ORAL route every 8 hours as needed; 12 tablet. Prednisone 20 mg Oral Tablet - take 2 tablets by ORAL route once daily for 4 days; 8 tablet. - Medication Reconciliation Form, Thank You Letter, Antibiotic Education, Prescription Opioid Use, Work release form form. - Follow up: Private Physician; When: 2 - 3 days; Reason: If symptoms return, Further diagnostic work-up, Recheck today's complaints, Continuance of care, Re-evaluation by your physician. Follow up: Aaron Rae MD; When: 2 - 3 days; Reason: If symptoms return, Further diagnostic work-up, Recheck today's complaints, Continuance of care, Re-evaluation by your physician. - Problem is new. - Symptoms have improved. Signatures: Dispatcher [employer] Lobo Suero MD MD [facility] Eitan Cárdenas RN RN Elodia Samuel RN RN Brandi Chavis RN ph Corrections: (The following items were deleted from the chart) 14:42 14:13 10/25/2019 14:13 Discharged to Home. Impression: Low back pain; Pain in right hb hip. Condition is Stable. Forms are Medication Reconciliation Form, Thank You Letter, Antibiotic Education, Prescription Opioid Use. Follow up: Private Physician; When: 2 - 3 days; Reason: If symptoms return, Further diagnostic work-up, Recheck today's complaints, Continuance of care, Re-evaluation by your physician. Follow up: Aaron Rae; When: 2 - 3 days; Reason: If symptoms return, Further diagnostic work-up, Recheck today's complaints, Continuance of care, Re-evaluation by your physician. Problem is new. Symptoms have improved. kdr
--- NOTE | 2019-10-25 14:13 | ER ---
Nurse's Notes [facility] Name: Missael Beaulieu Age: 58 yrs Sex: Male : 1960 Arrival Date: 10/25/2019 Time: 09:06 Bed 5 Private MD: Diagnosis: Low back pain;Pain in right hip Presentation: 10/24 09:27 Chief complaint: Worsening right lower leg pain that radiates to tight hip x 3 weeks. hb Denies injury. Coronavirus screen: Proceed with normal triage. Ebola Screen: No symptoms or risks identified at this time. Initial Sepsis Screen: Does the patient meet any 2 criteria? No. Patient's initial sepsis screen is negative. Does the patient have a suspected source of infection? No. Patient's initial sepsis screen is negative. Risk Assessment: Do you want to hurt yourself or someone else? Patient reports no desire to harm self or others. Onset of symptoms was September 2019. 09:27 Method Of Arrival: Ambulatory hb 09:27 Acuity: VANITA 3 hb Historical: - Allergies: 09:30 No Known Allergies; hb - Home Meds: 09:30 atorvastatin, gabapentin, glipizide, metformin, cyclobenzaprine, cartia, steglatro, hb lisinopril. [Active]; - PMHx: 09:30 Diabetes - NIDDM; High Cholesterol; Hypertension; hb - PSHx: 09:30 Pacemaker/Defib; Back x 3; hb - Immunization history:: Adult Immunizations up to date. - Social history:: Smoking status: Patient denies any tobacco usage or history of. Screenin:19 Abuse screen: Denies threats or abuse. Denies injuries from another. Nutritional ph screening: No deficits noted. Tuberculosis screening: No symptoms or risk factors identified. Fall Risk None identified. Assessment: 09:45 General: Appears in no apparent distress. uncomfortable, well groomed, Behavior is ph calm, cooperative, appropriate for age, Denies fever, feeling ill. Pain: Complains of pain in right low back Pain radiates to right leg. Neuro: Level of Consciousness is awake, alert, obeys commands, Oriented to person, place, time, situation. Cardiovascular: Capillary refill < 3 seconds in bilateral fingers Patient's skin is warm and dry. Respiratory: Airway is patent Respiratory effort is even, unlabored, Respiratory pattern is regular, symmetrical. GI: No signs and/or symptoms were reported involving the gastrointestinal system. Derm: Skin is intact, is healthy with good turgor, Skin is pink, warm \T\ dry. Musculoskeletal: Circulation, motion, and sensation intact. Range of motion: intact in all extremities. 11:30 Reassessment: Patient appears in no apparent distress at this time. Patient and/or ph family updated on plan of care and expected duration. Pain level reassessed. Patient is alert, oriented x 3, equal unlabored respirations, skin warm/dry/pink. 13:06 Reassessment: wheeled to MRI via wheelchair. em Vital Signs: 09:27 BP 146 / 82; Pulse 75; Resp 16; Temp 97.2; Pulse Ox 97% on R/A; Weight 127.01 kg; hb Height 6 ft. (182.88 cm); Pain 7/10; 10:20 BP 145 / 80; Pulse 66; Resp 18; Pulse Ox 95% on R/A; ph 11:30 BP 137 / 89; Pulse 64; Resp 18; Pulse Ox 98% on R/A; ph 12:30 BP 148 / 76; Pulse 62; Resp 18; Pulse Ox 95% on R/A; ph 14:19 BP 129 / 79; Pulse 60; Resp 17; Pulse Ox 94% on R/A; mh5 09:27 Body Mass Index 37.97 (127.01 kg, 182.88 cm) hb ED Course: 09:06 Patient arrived in ED. am2 09:15 Lobo Rashid MD is Attending Physician. kdr 09:29 Triage completed. hb 09:30 Arm band placed on. hb 09:31 Brandi Chavis, RN is Primary Nurse. ph 10:15 Initial lab(s) drawn, by wi, sent to lab. Inserted saline lock: 22 gauge in right ph antecubital area, using aseptic technique. Blood collected. 10:20 Patient has correct armband on for positive identification. Bed in low position. Call ph light in reach. Side rails up X 1. Pulse ox on. NIBP on. Door closed. Noise minimized. Pillow given. 13:32 Lumbar Spine Wo Con In Process Unspecified. EDMS 14:12 Aaron Sheridan MD is Referral Physician. kdr 14:25 No provider procedures requiring assistance completed. IV discontinued, intact, hb bleeding controlled, No redness/swelling at site. Administered Medications: 09:42 Drug: Ondansetron (Zofran) 4 mg Route: PO; em 10:20 Follow up: Response: No adverse reaction ph 09:44 Drug: [place] 10 mg-325 mg 1 tabs Route: PO; em 10:20 Follow up: Response: No adverse reaction ph 09:44 Not Given (Other Intervention Used): Zofran (Ondansetron) 4 mg IVP once; over 2 minutes em Outcome: 14:13 Discharge ordered by . kdr 14:25 Discharged to home ambulatory. hb 14:25 Condition: stable 14:25 Discharge instructions given to patient, Instructed on discharge instructions, follow up and referral plans. medication usage, Demonstrated understanding of instructions, follow-up care, medications, Prescriptions given X 4. 14:42 Patient left the ED. Signatures: Dispatcher [employer] EDMS Lobo Rashid MD MD kdr Munoz, Edgar, RN RN em Hall, Patricia, RN RN ph Baxter, Heather, JIMMIE RN Krysten Kiser [facility] [place] [facility]
[2019-10-25 14:54] VITALS: TEMP 97.2
[2019-10-25 14:57] VITALS: BP 129/79; O2SAT 94
== END 2019-10-25 14:42 | disposition home or self-care (01) ==
LOC: ER 09:03
DX: M25.551 Pain in right hip (principal); I10 Essential (primary) hypertension; E78.00 Pure hypercholesterolemia, unspecified; E11.9 Type 2 diabetes mellitus without complications; Z95.810 Presence of automatic (implantable) cardiac defibrillator
CPT/HCPCS: 36415; 72148; 80048; 85025; 85652; 86140; 99284